=== PATIENT | female | born 1945 | race Caucasian/White ===

== ENCOUNTER 2020-09-27 06:47 | Outpatient (REF) | payer MEDICARE, SELFPAY ==
[2020-09-27 07:21] LABS: MANUAL DIFF FLAG NO
[2020-09-27 07:25] LABS: Basophils Percent Auto 0.8 % (0-2); Eosinophils Absolute Auto 0.1 X10*3/uL (0.0-0.4); Eosinophils Percent Auto 2.6 % (0-4); Hematocrit 44.4 % (37-47); Hemoglobin 14.2 g/dl (12.0-16.0); Imm Gran Abs Auto 0.01 X10*3/uL (0.00-0.03); Imm Gran Pct Auto 0.2 % (0.0-0.4); Lymphocytes Absolute Auto 1.5 X10*3/uL (1.2-4.9); Lymphocytes Percent Auto 29.7 % (20-40); Mean Corpuscular Hemoglobin 29.4 pg (27.0-33.0); Mean Corpuscular Volume 91.9 fL (80-98); Mean Platelet Volume 9.6 fL (9.4-12.3); Monocytes Absolute Auto 0.4 X10*3/uL (0.1-1.2); Monocytes Percent Auto 7.5 % (2-11); Neutrophils Percent Auto 59.2 % (45-73); Platelet Count 270 X10*3/uL (160-400); Red Blood Count 4.83 X10*6/uL (4.20-5.50); White Blood Count 5.1 X10*3/uL (4.8-10.8)
[2020-09-27 07:44] LABS: Alanine Aminotransferase 26 U/L (0-31); Albumin Level 4.2 g/dL (3.5-5.0); Alkaline Phosphatase 93 U/L (39-117); Anion Gap 11 (12-20); Aspartate Amino Transferase 24 U/L (5-31); Bilirubin Total 0.6 mg/dL (0.0-1.0); Blood Urea Nitrogen 21 mg/dL (9-16); Calcium 8.9 mg/dL (8.4-10.2); Carbon Dioxide 31 mmol/L (22-29); Chloride 103 mmol/L (96-108); Cholesterol 188 mg/dL; Estimated Glomerular Filt Rate > 60; Glucose Fasting 88 mg/dL (60-99); HDL Cholesterol 60 mg/dL; LDL Cholesterol Calculated 106 mg/dl; Potassium 4.2 mmol/l (3.3-5.1); Sodium 141 mmol/L (135-145); Total Protein 6.3 g/dL (6.5-8.0); Triglycerides 113 mg/dL
[2020-09-27 08:07] LABS: Thyroid Stimulating Hormone 2.26 uIU/mL (0.32-4.0); Vitamin D 25-OH Total 29.1 ng/mL (>30)
[2020-09-27 08:13] LABS: Folate 19.7 ng/mL (> or = 4.0); Vitamin B12 597 pg/mL (200-900)
[2020-09-27 08:15] LABS: T4 Thyroxine 6.7 ug/dL (4.5-12.0)
== END 2020-09-27 06:48 | disposition home or self-care (01) ==
LOC: HO.LAB 06:47
PROVIDERS: Visit Provider Internal Medicine
DX: Z00.00 Encounter for general adult medical examination without abnormal findings (principal); I10 Essential (primary) hypertension; E78.00 Pure hypercholesterolemia, unspecified
CPT/HCPCS: 36415; 80053; 80061; 82306; 82607; 82746; 84436; 84443; 85025

== ENCOUNTER 2020-09-28 15:15 | Outpatient (REF) | payer MEDICARE, SELFPAY ==
--- NOTE | 2020-09-28 | MM_ITS ---
EXAMINATION: MM SCREENING DIGITAL BREAST TOMOSYNTHESIS, BILATERAL CLINICAL INFORMATION: Screening. Asymptomatic. The lifetime risk of breast cancer based on the Tyrer-Cuzick Model is 2%. COMPARISON: Mammography: 09/25/2019, 09/02/2018, 08/28/2017 TECHNIQUE: Digital breast tomosynthesis is performed in both the craniocaudal and mediolateral oblique views along with computer-aided detection (CAD). Synthesized 2D images are generated from the tomosynthesis. FINDINGS: There are scattered areas of fibroglandular density (ACR BI-RADS breast composition Category b). Breast tissue composition borders on heterogeneously dense in the bilateral anterior breasts. Parenchymal pattern is similar to prior study. No developing density or interval mass or architectural abnormality. Again, there are scattered vascular and benign round coarse calcifications. No significant changes. MM/MM tomosynthesis screening BI IMPRESSION: No significant changes from prior exams. ASSESSMENT: BI-RADS 2: Benign RECOMMENDATION: Routine annual mammography screening. This patient's information was entered into a reminder system with a target due date for their next mammogram.
== END 2020-09-28 15:16 | disposition home or self-care (01) ==
LOC: HO.MAMMO 15:15
PROVIDERS: PCP Internal Medicine; Visit Provider Internal Medicine
DX: Z12.31 Encounter for screening mammogram for malignant neoplasm of breast (principal)
CPT/HCPCS: 77063; 77067

== ENCOUNTER 2020-10-22 10:02 | Outpatient (REF) | payer MEDICARE, SELFPAY ==
[2020-10-22 11:09] LABS: Blood Urea Nitrogen 17 mg/dL (9-16); Estimated Glomerular Filt Rate > 60
== END 2020-10-22 10:03 | disposition home or self-care (01) ==
LOC: HO.LAB 10:02
PROVIDERS: Visit Provider Internal Medicine
DX: R10.32 Left lower quadrant pain (principal); I10 Essential (primary) hypertension; E78.00 Pure hypercholesterolemia, unspecified
CPT/HCPCS: 36415; 82565; 84520

== ENCOUNTER 2020-11-05 08:14 | Outpatient (REF) | payer MEDICARE, SELFPAY ==
--- NOTE | ~2020-11-05 | CT_ITS ---
EXAMINATION: CT ABDOMEN AND PELVIS WITH CONTRAST CLINICAL INFORMATION: Left lower quadrant pain. COMPARISON: CT abdomen and pelvis 02/02/2011 TECHNIQUE: Multidetector volumetric images were obtained from the superior aspect of the liver through the pubic symphysis following administration 85 mL of Omnipaque 350 intravenous contrast. Sagittal and coronal reformatted images were obtained on the technologist's workstation. Oral contrast: No This CT examination was performed using dose optimization techniques as appropriate, variously including the following: *Automated exposure control *Adjustment of mA and/or kV according to patient size (this includes techniques or standardized protocols for targeted exams where dose is matched to indication/reason for exam; i.e. extremities or head) *Use of iterative reconstruction technique DLP: 405 mGy-cm FINDINGS: LUNG BASES: The lung bases are unremarkable. The heart size is normal. There is a small to moderate-sized hiatal hernia. LIVER, GALLBLADDER, AND BILIARY TREE: The liver is normal in size, shape, and attenuation. There are multiple hypodense lesions scattered throughout, most suggestive of small cysts. The largest cyst in the right hepatic lobe measures 1.5 cm and 15 Hounsfield units on axial image 20/3. There is an irregular-shaped hypodense lesion in the left hepatic lobe, lateral segment, hemangioma as was noted on the previous study 02/02/2011. Previously this lesion measured 3.7 cm. No intrahepatic ductal dilatation seen. The gallbladder has been surgically removed PANCREAS: The pancreas is unremarkable. The peripancreatic fat borders are maintained. SPLEEN: Unremarkable. ADRENAL GLANDS: Unremarkable. KIDNEYS AND URETERS: The kidneys are normal in size, shape, and attenuation. No hydronephrosis, hydroureter, or calculi seen. No perinephric stranding. There are several hypodense lesions in the left kidney with the largest lesion measuring 1.2 cm and 18 Hounsfield units. There is a punctate hypodense lesion in the right kidney as well. BLADDER: Unremarkable. GASTROINTESTINAL TRACT: There is scattered stool, diverticuli and gas seen throughout the colon without distention or diverticulitis. The small bowel loops are normal caliber. The appendix is not visualized. ABDOMINAL WALL: No significant hernia is appreciated. LYMPH NODES: Normal. VASCULAR: Unremarkable. PELVIC VISCERA: Unremarkable. OSSEOUS STRUCTURES: No lytic or sclerotic process seen. There is mild degenerative disc changes with vacuum disc phenomena at L5-S1 disc level. Mild bilateral right L4-L5 facet joint arthropathy is noted. CT/CT abdomen pelvis w con IMPRESSION: 1. Moderate constipation and colonic diverticulosis without diverticulitis. 2. Bilateral renal cysts.
[2020-11-05] MEDS: iohexoL 350 MG/ML 100 ML INFUS..BTL 85 ML IV (11:14)
[2020-11-05] MEDS: Barium Sulfate Oral (Berry) 450 ML ORAL.SUSP 900 ML PO (11:14)
== END 2020-11-05 08:15 | disposition home or self-care (01) ==
LOC: HO.CT 08:14
PROVIDERS: PCP Internal Medicine; Visit Provider Internal Medicine
DX: R10.32 Left lower quadrant pain (principal)
CPT/HCPCS: 74177; Q9967

== ENCOUNTER 2021-09-16 06:19 | Outpatient (REF) | payer MEDICARE, SELFPAY ==
[2021-09-16 06:40] LABS: MANUAL DIFF FLAG NO
[2021-09-16 07:13] LABS: Basophils Absolute Auto 0.1 X10*3/uL (0.0-0.2); Eosinophils Absolute Auto 0.2 X10*3/uL (0.0-0.4); Eosinophils Percent Auto 3.1 % (0-4); Hematocrit 42.3 % (37.0-47.0); Hemoglobin 13.7 g/dl (12.0-16.0); Imm Gran Abs Auto 0.02 X10*3/uL (0.00-0.03); Imm Gran Pct Auto 0.4 % (0.0-0.4); Lymphocytes Absolute Auto 1.8 X10*3/uL (1.2-4.9); Lymphocytes Percent Auto 35.8 % (20-40); Mean Corpuscular HGB Conc 32.4 g/dl (31.0-35.0); Mean Corpuscular Hemoglobin 29.8 pg (27.0-33.0); Mean Platelet Volume 9.2 fL (9.4-12.3); Monocytes Absolute Auto 0.4 X10*3/uL (0.1-1.2); Monocytes Percent Auto 7.7 % (2-11); Neutrophils Absolute Auto 2.7 x10*3/uL (2.0-8.3); Platelet Count 311 X10*3/uL (160-400); Red Cell Distribution Width 14.4 % (11.0-16.0); White Blood Count 5.1 X10*3/uL (4.8-10.8)
[2021-09-16 07:22] LABS: Appearance Urine HAZY; Color Urine YELLOW; Glucose Urine UA NEG (NEG); Leukocyte Esterase Urine 3+ (NEG); Nitrite Urine NEG (NEG); Urine Blood NEG (NEG); Urine Ketones NEG (NEG); Urine Protein TRACE MG/DL (NEG-TRACE)
[2021-09-16 07:38] LABS: Alanine Aminotransferase 37 U/L (0-31); Albumin Level 4.1 g/dL (3.5-5.0); Alkaline Phosphatase 104 U/L (39-117); Anion Gap 14 (12-20); Aspartate Amino Transferase 28 U/L (5-31); Bilirubin Total 0.5 mg/dL (0.0-1.0); Blood Urea Nitrogen 22 mg/dL (9-16); Calcium 9.3 mg/dL (8.4-10.2); Carbon Dioxide 27 mmol/L (22-29); Chloride 106 mmol/L (96-108); Cholesterol 196 mg/dL; Estimated Glomerular Filt Rate > 60; Glucose Random 88 mg/dL (60-115); HDL Cholesterol 54 mg/dL; LDL Cholesterol Calculated 118 mg/dl; Potassium 4.6 mmol/L (3.3-5.1); Sodium 142 mmol/L (135-145); Total Protein 6.4 g/dL (6.5-8.0); Triglycerides 123 mg/dL
[2021-09-16 07:49] LABS: Bacteria Urine TRACE /LPF; RBC Urine 0 /HPF (0); Squamous Epithelial Cell Urine 1+ /LPF
[2021-09-16 07:50] LABS: Amorphous Sediment Urine 1+ /LPF; Mucus Urine 1+ /LPF
[2021-09-16 08:03] LABS: Free T4 (Free Thyroxine) 0.93 ng/dL (0.71-1.85); Thyroid Stimulating Hormone 1.65 uIU/mL (0.32-4.0)
[2021-09-16 08:34] LABS: Folate 16.6 ng/mL (> or = 4.0); Vitamin B12 642 pg/mL (200-900)
== END 2021-09-16 06:20 | disposition home or self-care (01) ==
LOC: HO.LAB 06:19
PROVIDERS: PCP Internal Medicine; Visit Provider Internal Medicine
DX: E78.00 Pure hypercholesterolemia, unspecified (principal); I10 Essential (primary) hypertension
CPT/HCPCS: 36415; 80053; 80061; 81001; 82306; 82607; 82746; 84439; 84443; 85025

== ENCOUNTER 2021-10-24 08:42 | Outpatient (REF) | payer MEDICARE, SELFPAY ==
--- NOTE | ~2021-10-24 | MM_ITS ---
EXAMINATION: MM SCREENING DIGITAL BREAST TOMOSYNTHESIS, BILATERAL CLINICAL INFORMATION: Screening. Asymptomatic. The lifetime risk of breast cancer based on the Tyrer-Cuzick Model is 2%. COMPARISON: Mammography: 09/28/2020, 09/25/2019, 09/02/2018 TECHNIQUE: Digital breast tomosynthesis is performed in both the craniocaudal and mediolateral oblique views along with computer-aided detection (CAD). Synthesized 2D images are generated from the tomosynthesis. FINDINGS: There are scattered areas of fibroglandular density (ACR BI-RADS breast composition Category b). Parenchymal pattern is similar to prior studies. Breast tissue composition borders on heterogeneously dense. There is no developing density or interval mass or architectural abnormality. There are scattered benign round and vascular calcifications. The axilla and skin contours are unremarkable. No significant changes. MM/MM tomosynthesis screening BI IMPRESSION: No mammographic evidence of malignancy. ASSESSMENT: BI-RADS 2: Benign RECOMMENDATION: Routine annual mammography screening. This patient's information was entered into a reminder system with a target due date for their next mammogram.
== END 2021-10-24 08:43 | disposition home or self-care (01) ==
LOC: HO.MAMMO 08:42
PROVIDERS: PCP Internal Medicine; Visit Provider Internal Medicine
DX: Z12.31 Encounter for screening mammogram for malignant neoplasm of breast (principal)
CPT/HCPCS: 77063; 77067

== ENCOUNTER 2022-07-03 10:57 | Outpatient (REF) | payer MEDICARE, SELFPAY ==
--- NOTE | ~2022-07-03 | XR_ITS ---
EXAMINATION: XR CHEST CLINICAL INFORMATION: Bronchitis COMPARISON: Previous chest x-ray from 2013 TECHNIQUE: 2 views of the chest were obtained. FINDINGS: The cardiac and mediastinal contours are stable. There is question of a right upper lobe nodule measuring 1.5 cm. This overlies the right anterior third rib and could be related to bone as well. There is subsegmental atelectasis at the left lung base. The lungs are otherwise clear. There is no pleural effusion or pneumothorax. Bony structures are otherwise unremarkable. XR/XR chest 2V IMPRESSION: Question 1.5 cm right upper lobe nodule versus findings related to the right anterior third rib. Follow-up chest x-ray or chest CT scan recommended. Findings will be communicated by the [place] work flow audio/visual operator.
== END 2022-07-03 10:58 | disposition home or self-care (01) ==
LOC: HO.XRAY 10:57
PROVIDERS: PCP Internal Medicine; Visit Provider Internal Medicine
DX: J40 Bronchitis, not specified as acute or chronic (principal)
CPT/HCPCS: 71046

== ENCOUNTER 2022-07-14 08:42 | Outpatient (REF) | payer MEDICARE, SELFPAY ==
--- NOTE | ~2022-07-14 | CT_ITS ---
EXAMINATION: CT CHEST WITH CONTRAST CLINICAL INFORMATION: Right upper lobe 1.5 mm nodule on chest x-ray 07/03/2022. COMPARISON: Chest x-ray 07/03/2022 CT abdomen and pelvis 11/05/2020. TECHNIQUE: Multidetector volumetric CT imaging of the chest was obtained after the administration of 50 mL of Omnipaque 350 intravenous contrast without immediate adverse reactions. Axial MIP volume rendering provided. Sagittal and coronal reformatted images were obtained. This CT examination was performed using dose optimization techniques as appropriate, variously including the following: *Automated exposure control *Adjustment of mA and/or kV according to patient size (this includes techniques or standardized protocols for targeted exams where dose is matched to indication/reason for exam; i.e. extremities or head) *Use of iterative reconstruction technique DLP: 111 mGy-cm. FINDINGS: INSULATION MECHANIC: Well-inflated lungs. LUNGS: The lungs are well inflated with right upper lobe patchy ground-glass opacity adjacent to the major fissure. Measures 3.1 cm on sagittal reconstructed images 84/8. An ill-defined ground-glass attenuation is seen just anteriorly likely continuation of the larger ground-glass density in right upper lobe measuring approximately 7 mm on axial image 19/6. There is a third ill-defined density adjacent to the right minor fissure, approximately 7 mm on axial image 26/4. No focal consolidation, mass or nodule seen in the right upper lower lobe. The left lung on the right lower lobe is clear. MEDIASTINUM: The thyroid lobes are symmetrical and normal. The central trachea and bronchi are widely patent. No abnormal-sized mediastinal or hilar lymph nodes seen. Heart size and the great vessels are normal caliber. A moderate-sized hiatal hernia is seen. CORONARY ARTERY CALCIFICATION: None visualized on this study. PLEURA: There is no pleural effusion. No pleural mass or thickening. AXILLA: No abnormal-sized lymph nodes visualized. UPPER ABDOMEN: There is a 1 cm and a 1.8 cm hypodensity posterior segment right hepatic lobe. Rest of the liver is unremarkable. No intrahepatic ductal dilatation seen. OSSEOUS STRUCTURES: No lytic or sclerotic normal process seen. CT/CT chest w IV con IMPRESSION: 1. Right upper lobe ground-glass density adjacent to the major fissure and right minor fissure. There are 2 additional ill-defined ground-glass attenuations in the right upper lobe. The left lung is clear. These are most likely post inflammatory changes. No solid lesions seen to corroborate findings seen on chest x-ray. 2. No abnormal mediastinal or axillary lymph nodes seen. 3. Moderate-sized hiatal hernia. 4. Two small hypodensities in the right hepatic lobe. These are too small to characterize but likely cysts. Fleischner guidelines were followed.
[2022-07-14] MEDS: iohexoL 350 MG/ML 100 ML INFUS..BTL 65 ML IV (09:42)
[2022-07-14 10:36] LABS: Creatinine POC 0.6 mg/dL (0.5-1.4); GFR POC > 60
== END 2022-07-14 08:43 | disposition home or self-care (01) ==
LOC: HO.CT 08:42
PROVIDERS: PCP Internal Medicine; Visit Provider Internal Medicine
DX: R91.1 Solitary pulmonary nodule (principal)
CPT/HCPCS: 71260; 82565; Q9967

== ENCOUNTER 2022-10-16 06:41 | Outpatient (REF) | payer MEDICARE, SELFPAY ==
--- NOTE | ~2022-10-16 | CT_ITS ---
EXAMINATION: CT CHEST WITHOUT CONTRAST CLINICAL INFORMATION: Solitary pulmonary nodule COMPARISON: 07/14/2022 TECHNIQUE: Multidetector volumetric CT imaging of the chest was done. Axial MIP volume rendering provided. Sagittal and coronal reformatted images were obtained. This CT examination was performed using dose optimization techniques as appropriate, variously including the following: *Automated exposure control *Adjustment of mA and/or kV according to patient size (this includes techniques or standardized protocols for targeted exams where dose is matched to indication/reason for exam; i.e. extremities or head) *Use of iterative reconstruction technique DLP: 99 FINDINGS: LUNGS: When compared to the prior study, there is been interval improvement in right upper and middle lobe ill-defined groundglass opacities. Residual right upper lobe groundglass opacity measures 1.2 cm (7:134). A right middle lobe groundglass opacity decreased from prior study measures 1.5 cm (7:206). New right upper lobe 5 mm nodule (7:164), endobronchial in appearance may reflect mucoid impaction. Additional new sub-3 mm nodules in the right middle lobe, several of which are endobronchial in location, may reflect new foci of mucoid impaction. A reference right middle lobe nodule measuring 3 mm (7:169) is noted. MEDIASTINUM: No mediastinal adenopathy. No significant coronary artery atherosclerotic calcifications. PLEURA: There is no pleural effusion. No pleural mass or thickening. AXILLA: No lymphadenopathy. UPPER ABDOMEN: Large hiatal hernia. OSSEOUS STRUCTURES/SOFT TISSUES: Degenerative changes of the thoracolumbar spine. CT/CT chest wo IV con IMPRESSION: 1. Interval improvement in right upper and middle lobe ill-defined groundglass opacities with residual groundglass opacities measuring up to 1.2 cm. 2. New right upper lobe 5 mm nodule, endobronchial in appearance may reflect mucoid impaction. Additional new sub-3 mm nodules in the right middle lobe, several of which are endobronchial in location, may reflect new foci of mucoid impaction. Fleischner guidelines were followed. According to the UPDATED 2017 Fleischner Society recommendations, the advised followup imaging for a single part solid nodule measuring 6 mm or greater is: CT at 3-6 months to confirm persistence. If unchanged and solid component remains <6 mm, annual CT should be performed for 5 years.
[2022-10-16 06:55] LABS: MANUAL DIFF FLAG NO
[2022-10-16 08:28] LABS: Basophils Percent Auto 0.9 % (0-2); Eosinophils Absolute Auto 0.1 X10*3/uL (0.0-0.4); Eosinophils Percent Auto 3.2 % (0-4); Hematocrit 43.6 % (37.0-47.0); Hemoglobin 14.2 g/dl (12.0-16.0); Imm Gran Abs Auto 0.01 X10*3/uL (0.00-0.03); Imm Gran Pct Auto 0.2 % (0.0-0.4); Lymphocytes Absolute Auto 1.2 X10*3/uL (1.2-4.9); Lymphocytes Percent Auto 26.6 % (20-40); Mean Corpuscular HGB Conc 32.6 g/dl (31.0-35.0); Mean Corpuscular Hemoglobin 29.6 pg (27.0-33.0); Mean Platelet Volume 9.9 fL (9.4-12.3); Monocytes Absolute Auto 0.4 X10*3/uL (0.1-1.2); Monocytes Percent Auto 8.6 % (2-11); Neutrophils Absolute Auto 2.7 x10*3/uL (2.0-8.3); Neutrophils Percent Auto 60.5 % (45-73); Platelet Count 282 X10*3/uL (160-400); Red Blood Count 4.79 X10*6/uL (4.20-5.50); Red Cell Distribution Width 14.3 % (11.0-16.0); White Blood Count 4.4 X10*3/uL (4.8-10.8)
[2022-10-16 08:51] LABS: Alanine Aminotransferase 23 U/L (0-31); Albumin Level 4.2 g/dL (3.5-5.0); Alkaline Phosphatase 95 U/L (39-117); Anion Gap 12 (12-20); Aspartate Amino Transferase 24 U/L (5-31); Bilirubin Total 0.5 mg/dL (0.0-1.0); Blood Urea Nitrogen 29 mg/dL (9-16); Calcium 9.2 mg/dL (8.4-10.2); Carbon Dioxide 29 mmol/L (22-29); Chloride 105 mmol/L (96-108); Cholesterol 193 mg/dL; Estimated Glomerular Filt Rate > 60; Glucose Random 79 mg/dL (60-115); HDL Cholesterol 59 mg/dL; LDL Cholesterol Calculated 115 mg/dl; Potassium 4.1 mmol/L (3.3-5.1); Sodium 142 mmol/L (135-145); Total Protein 6.3 g/dL (6.5-8.0); Triglycerides 99 mg/dL
[2022-10-16 09:10] LABS: Vitamin D 25-OH Total 36.3 ng/mL (>30)
[2022-10-16 09:11] LABS: Folate 16.2 ng/mL (> or = 4.0); Vitamin B12 587 pg/mL (200-900)
== END 2022-10-16 06:42 | disposition home or self-care (01) ==
LOC: HO.CT 06:41
PROVIDERS: PCP Internal Medicine; Visit Provider Internal Medicine
DX: R91.1 Solitary pulmonary nodule (principal); I10 Essential (primary) hypertension; E78.00 Pure hypercholesterolemia, unspecified; M85.80 Other specified disorders of bone density and structure, unspecified site
CPT/HCPCS: 36415; 71250; 80053; 80061; 82306; 82607; 82746; 84439; 84443; 85025

== ENCOUNTER 2022-10-30 09:18 | Outpatient (REF) | payer MEDICARE, SELFPAY ==
--- NOTE | ~2022-10-30 | MM_ITS ---
EXAMINATION: MM SCREENING DIGITAL BREAST TOMOSYNTHESIS, BILATERAL CLINICAL INFORMATION: Screening. Asymptomatic. The lifetime risk of breast cancer based on the Tyrer-Cuzick Model is 2%. COMPARISON: Mammography: 10/24/2021, 09/28/2020, 09/25/2019, 09/02/2018 TECHNIQUE: Digital breast tomosynthesis is performed in both the craniocaudal and mediolateral oblique views along with computer-aided detection (CAD). Synthesized 2D images are generated from the tomosynthesis. FINDINGS: There are scattered areas of fibroglandular density (ACR BI-RADS breast composition Category b). Breast tissue composition borders on heterogeneously dense in the anterior breasts. The parenchymal pattern is similar to prior studies. There is no developing density or interval mass or architectural abnormality. Again, there are scattered bilateral benign round and rim and vascular calcifications. Benign rim calcifications are present central left breast 3.5 cm from nipple. There are no significant changes. MM/MM tomosynthesis screening BI IMPRESSION: No mammographic evidence of malignancy. ASSESSMENT: BI-RADS 2: Benign RECOMMENDATION: Routine annual mammography screening. This patient's information was entered into a reminder system with a target due date for their next mammogram.
== END 2022-10-30 09:19 | disposition home or self-care (01) ==
LOC: HO.MAMMO 09:18
PROVIDERS: PCP Internal Medicine; Visit Provider Internal Medicine
DX: Z12.31 Encounter for screening mammogram for malignant neoplasm of breast (principal)
CPT/HCPCS: 77063; 77067

== ENCOUNTER 2023-02-20 08:45 | Outpatient (REF) | payer MEDICARE, SELFPAY ==
--- NOTE | ~2023-02-20 | XR_ITS ---
EXAMINATION: XR CHEST CLINICAL INFORMATION: Bronchitis COMPARISON: Previous chest CT most recent October 2022 and chest x-ray most recent July 2022 TECHNIQUE: 2 views of the chest were obtained. FINDINGS: The cardiac and mediastinal contours are stable. The lungs are well inflated. The lungs are clear. No pleural effusion or pneumothorax. Degenerative changes of the spine. XR/XR chest 2V IMPRESSION: No evidence for acute disease in the chest.
== END 2023-02-20 08:46 | disposition home or self-care (01) ==
LOC: HO.HMGCX 08:45
PROVIDERS: Visit Provider Internal Medicine
DX: J40 Bronchitis, not specified as acute or chronic (principal)
CPT/HCPCS: 71046

== ENCOUNTER 2023-03-28 10:22 | Outpatient (REF) | payer MEDICARE, SELFPAY ==
--- NOTE | ~2023-03-28 | CT_ITS ---
EXAMINATION: CT CHEST WITHOUT CONTRAST HIGH RESOLUTION CLINICAL INFORMATION: Solitary pulmonary nodule. COMPARISON: Chest x-ray 02/20/[address] 10/16/2022. TECHNIQUE: Multidetector volumetric imaging was performed from the thoracic inlet through the lung bases without contrast. Sagittal and coronal reformatted images were obtained on the technologist workstation. Soft tissue and lung algorithms evaluated. Thick slab MIP images were performed to increase nodule conspicuity. This CT examination was performed using dose optimization techniques as appropriate, variously including the following: *Automated exposure control *Adjustment of mA and/or kV according to patient size (this includes techniques or standardized protocols for targeted exams where dose is matched to indication/reason for exam; i.e. extremities or head) *Use of iterative reconstruction technique DLP: 115 mGy-cm. FINDINGS: Central airways are patent although some peripheral mucous plugging is again appreciated.. Lungs are well aerated. Mild emphysematous changes are present. There is minimal biapical architectural distortion/scarring. There is some minimal dependent atelectasis. No lobar consolidation, pleural effusion or pneumothorax. Previously visualized approximately 1.5 cm right middle lobe groundglass opacity is stable. A few previously visualized subcentimeter pulmonary nodules are stable in size. No new suspicious pulmonary nodules visualized. The heart is normal in size. There is no pericardial effusion. No coronary artery calcifications. Normal caliber thoracic aorta. No gross mediastinal or hilar lymphadenopathy appreciated on today's noncontrast imaging. No pathologically enlarged axillary lymph nodes. Visualized portion of the upper abdomen demonstrate a moderate sized hiatal hernia. There are a few small hepatic hypodense foci, some of which demonstrate cystic characteristics but others are inaccurately characterized. Mild degenerative changes of the spine. CT/CT chest wo con - High Res IMPRESSION: Previously visualized 1.5 cm right middle lobe groundglass opacity is stable. A few other previously visualized subcentimeter pulmonary nodules are stable in size. No new suspicious pulmonary nodules visualized.
== END 2023-03-28 10:23 | disposition home or self-care (01) ==
LOC: HO.CT 10:22
PROVIDERS: PCP Internal Medicine; Visit Provider Internal Medicine
DX: R91.1 Solitary pulmonary nodule (principal)
CPT/HCPCS: 71250

== ENCOUNTER 2023-06-06 07:36 | Outpatient (REF) | payer MEDICARE, SELFPAY ==
--- NOTE | 2023-06-06 07:48 | ECG_ITS ---
Test Reason : htn Blood Pressure : / mmHG Vent. Rate : 074 BPM Atrial Rate : 074 BPM P-R Int : 142 ms QRS Dur : 132 ms QT Int : 392 ms P-R-T Axes : 041 029 019 degrees QTc Int : 435 ms Normal sinus rhythm Right bundle branch block Abnormal ECG When compared with ECG of 02-APR-2011 04:05, No significant change was found Referred By: Agnieszka Mora Electronically Signed By:CAROLYN YOUNGBLOOD
[2023-06-06 07:49] LABS: MANUAL DIFF FLAG NO
[2023-06-06 08:02] LABS: Basophils Percent Auto 0.6 % (0-2); Eosinophils Absolute Auto 0.1 X10*3/uL (0.0-0.4); Eosinophils Percent Auto 2.2 % (0-4); Hematocrit 42.9 % (37.0-47.0); Hemoglobin 14.1 g/dl (12.0-16.0); Imm Gran Abs Auto 0.02 X10*3/uL (0.00-0.03); Imm Gran Pct Auto 0.4 % (0.0-0.4); Lymphocytes Absolute Auto 1.3 X10*3/uL (1.2-4.9); Lymphocytes Percent Auto 24.8 % (20-40); Mean Corpuscular HGB Conc 32.9 g/dl (31.0-35.0); Mean Corpuscular Hemoglobin 30.2 pg (27.0-33.0); Mean Corpuscular Volume 91.9 fL (80.0-98.0); Mean Platelet Volume 9.6 fL (9.4-12.3); Monocytes Absolute Auto 0.4 X10*3/uL (0.1-1.2); Monocytes Percent Auto 8.7 % (2-11); Neutrophils Absolute Auto 3.2 x10*3/uL (2.0-8.3); Neutrophils Percent Auto 63.3 % (45-73); Platelet Count 262 X10*3/uL (160-400); Red Blood Count 4.67 X10*6/uL (4.20-5.50)
[2023-06-06 08:40] LABS: Alanine Aminotransferase 43 U/L (0-31); Albumin Level 4.2 g/dL (3.5-5.0); Alkaline Phosphatase 104 U/L (39-117); Anion Gap 14 (12-20); Aspartate Amino Transferase 32 U/L (5-31); Bilirubin Total 0.5 mg/dL (0.0-1.0); Blood Urea Nitrogen 25 mg/dL (9-16); Calcium 9.5 mg/dL (8.4-10.2); Carbon Dioxide 27 mmol/L (22-29); Chloride 105 mmol/L (96-108); Cholesterol 181 mg/dL (<200); Estimated Glomerular Filt Rate > 60; Glucose Random 93 mg/dL (60-115); HDL Cholesterol 64 mg/dL (>40); LDL Cholesterol Calculated 101 mg/dL (<100); Potassium 4.1 mmol/L (3.3-5.1); Sodium 142 mmol/L (135-145); Total Protein 6.9 g/dL (6.5-8.0); Triglycerides 81 mg/dL (<150)
[2023-06-06 08:59] LABS: Free T4 (Free Thyroxine) 0.88 ng/dL (0.71-1.85); Thyroid Stimulating Hormone 2.17 uIU/mL (0.32-4.0)
[2023-06-06 09:04] LABS: Folate 14.8 ng/mL (> or = 4.0); Vitamin B12 716 pg/mL (200-900)
== END 2023-06-06 07:37 | disposition home or self-care (01) ==
LOC: HO.LAB 07:36
PROVIDERS: PCP Internal Medicine; Visit Provider Internal Medicine
DX: I10 Essential (primary) hypertension (principal); E78.00 Pure hypercholesterolemia, unspecified; E55.9 Vitamin D deficiency, unspecified
CPT/HCPCS: 36415; 80053; 80061; 82306; 82607; 82746; 84439; 84443; 85025; 93005

== ENCOUNTER 2023-06-13 08:13 | Outpatient (REF) | payer MEDICARE, SELFPAY ==
--- NOTE | ~2023-06-13 | US_ITS ---
EXAMINATION: US ABDOMEN COMPLETE CLINICAL INFORMATION: Other specified abnormal findings of blood chemistry. Elevated LFTs. COMPARISON: CT abdomen and pelvis 11/05/2020 and 06/15/2008; abdominal ultrasound dated 06/09/2008. TECHNIQUE: Real-time imaging of the abdominal viscera. FINDINGS: PANCREAS: Normal. ABDOMINAL AORTA: The proximal, mid, and distal segments are normal in caliber. INFERIOR VENA CAVA: Visualized portions are normal. LIVER: The liver is normal in size. The liver contour is normal. Parenchymal echogenicity is slightly coarse. Within the left hepatic lobe laterally, a 1.8 x 2.5 x 2.3 cm hyperechoic, circumscribed mass is seen, with central hypoechoic focus, possibly a central scar. On the ultrasound examination of 06/20/2018, this measured 1.6 x 2.6 x 3.0 cm. It showed enhancement features consistent with a benign hemangioma on the CT examination (hemangioma protocol) of 06/15/2008. Centrally within the right hepatic lobe, a 1.7 cm in maximal diameter benign, simple cyst is demonstrated, for which no imaging follow-up is recommended. There is no intrahepatic biliary duct dilatation seen. GALLBLADDER: Surgically absent. COMMON BILE DUCT: Normal in caliber measuring 0.6 cm in diameter. RIGHT KIDNEY: There is a hypertrophic column of [place]. No hydronephrosis. No renal calculi or focal parenchymal lesions. The kidney measures 10.6 cm in maximum dimension. LEFT KIDNEY: Normal. No hydronephrosis. No renal calculi or focal parenchymal lesions. The kidney measures 11.2 cm in maximum dimension. SPLEEN: Normal. The spleen measures 10.0 cm in maximum dimension. FREE FLUID: None. US/US abdomen complete IMPRESSION: 1. There is generalized increase in hepatic echotexture, consistent with fatty infiltration or hepatocellular disease. Please correlate clinically. No new focal hepatic mass or intrahepatic biliary dilatation is seen. 2. There is mild interim decrease in a previously demonstrated benign hepatic hemangioma is situated within the left hepatic lobe laterally. 2. A benign, stable hemangioma is redemonstrated within the left hepatic lobe laterally.
== END 2023-06-13 08:14 | disposition home or self-care (01) ==
LOC: HO.HMGCX 08:13
PROVIDERS: PCP Internal Medicine; Visit Provider Internal Medicine
DX: R79.89 Other specified abnormal findings of blood chemistry (principal)
CPT/HCPCS: 76700

== ENCOUNTER 2023-06-15 08:48 | Outpatient (AMB) | payer MEDICARE, SELFPAY ==
--- NOTE | 2023-06-15 09:00 | A.OFFPC_ITS ---
Vital Signs 06/15/23 09:01 Height 4 ft 11.45 in Weight 141 lb 6 oz BMI 28.1 BP 150/86 H Blood Pressure Location Lt brachial Position Sitting Respiration 16 Pulse 80 Pulse Source Pulse Oximeter Pulse Oximetry (%) 97 Oxygen Delivery Method Room Air Intake Visit Reasons: 06/25-L foot toe pinned/straightened Intake Note: Patient is here for a Pre-op for Left foot marley osteotomy, left second hammertoe phalangeal interphalageal fusion scheduled with Dr. Adrian Kirby on 06/25/23. Spice Grinder Required: No Accompanied by: Self / Same As Patient Allergies codeine [CODEINE] Allergy (Severe, Verified 06/15/23 09:08) BRONCHOSPASMS oxycodone [OXYCODONE] Allergy (Severe, Verified 06/15/23 09:08) BRONCHOSPASMS lisinopril Adverse Reaction (Intermediate, Verified 06/15/23 09:08) Headache Medication List - Last Reconciled 06/15/23 by Agnieszka Mora MD ascorbic acid (vitamin C) 1 g PO DAILY aspirin (Adult Aspirin Regimen) 81 mg PO DAILY cetirizine 10 mg PO DAILY PRN 30 days docusate sodium (Colace) 100 mg PO BID hydrochlorothiazide 25 mg PO DAILY 90 days lactobacillus combination no.8 (Adult Probiotic) 3,000 mmu cells PO DAILY meloxicam 15 mg PO DAILY multivitamin 1 tab PO DAILY omega-3 fatty acids 500 mg PO DAILY psyllium husk (Metamucil) 1 tbsp PO BID simvastatin 10 mg PO BEDTIME Tobacco use date assessed: 10/31/22 Fall risk assessment: No Falls in past year Last assessed Fall Risk: 06/15/23 Dental Screening Dental Screen Date: 06/15/23 Did you have a dental visit in the last 12 months?: Yes Did you have a dental problem in the last 6 months where you did not have access to dental care?: No Was dental information given to patient?: Patient has dentist HPI 06/25-L foot toe pinned/straightened HPI Details 78-year-old female with a history of hyp ertension and hypercholesterolemia last seen in December 2022 concern about having pulmonary nodule and a CT scan repeat done March 2023:Previously visualized 1.5 cm right middle lobe groundglass opacity is stable. A few other previously visualized subcentimeter pulmonary nodules are stable in size. No new suspicious pulmonary nodules visualized. . Patient also has an upcoming orthoped ic surgery [facility] left foot osteotomy, left 2nd hammertoe phalangeal interphalangeal fusion scheduled 06/25/2023 blood work done showing mild elevation in liver function test. Ultrasound done showing fatty liver. EKG June 2023 normal sinus rhythm Right bundle branch block Abnormal ECG When compared with ECG of 02-APR-2011 04:05, No significant change was found [facility] Medical History (Updated 06/15/23 @ 09:26 by Agnieszka Mora MD) LFT elevation Sinusitis Bronchitis Alopecia Diverticular disease Hypercholesterolemia Hypertension Surgical History History of surgery H/O basal cell carcinoma excision History of foot surgery History of thumb surgery History of appendectomy History of tonsillectomy History of total abdominal hysterectomy and bilateral salpingo-oophorectomy History of cholecystectomy Family History Father Lung cancer Mother Hypertension Stroke Paternal Aunt Breast cancer Brother Prostate cancer Social History (Updated 06/15/23 @ 09:39 by Agnieszka Mora MD) Housing: House Alcohol intake: current Patient Tobacco Use Status: Former Tobacco user Tobacco use type: Cigarette Years Smoked: quit 1961 2months of smoking only e-Cigarette/Vaping Use: Never Used Second Hand Smoke Exposure: No service: No Current occupational status: retired Cognitive needs: No Hearing needs: No Vision needs: Yes Questionnaire Thrive Questionnaire Date Thrive assessed: 10/31/22 CARLOS-7 AMB Questionnaire CARLOS-7 Date CARLOS - 7 assessed: 10/31/22 Source: Developed by Drs. Venkata Boo, Donna Shaw, Maulik Martinez and colleagues, with an educational tico from [employer]. Review of Systems Const Denies poor appetite and Denies weakness Eyes Denies no additional complaints ENT Reports Normal hearing present, Denies dizziness, Denies nasal congestion, Denies tinnitus and Denies sore throat Card Denies chest pain, Denies syncope, Denies rapid heart rate and Denies dyspnea Resp Denies cough and Denies dyspnea GI Denies change in stool character, Reports constipation, Denies diarrhea, Denies nausea and Denies vomiting Denies urinary frequency, Denies difficulty voiding and Denies dysuria Neuro Reports Normal hearing present, Denies confusion, Denies dizziness, Denies synco pe and Denies weakness Psych Denies confusion Physical exam (Primary Care) Vital Signs: Last Vital Signs Pulse 80 06/15/23 09:01 Resp 16 06/15/23 09:01 BP 150/86 H 06/15/23 09:01 Pulse Ox 97 06/15/23 09:01 Oxygen Delivery Method Room Air 06/15/23 09:01 BMI result Body Mass Index 28.1 Tobacco/Smoking Status: Tobacco use Status Tobacco use date assessed 10/31/22 06/15/23 09:04 Patient Tobacco Use Status Former Tobacco user 06/15/23 09:04 Tobacco use type Cigarette 06/15/23 09:04 e-Cigarette/Vaping Use Never Used 06/15/23 09:04 Thrive Assessment: Date of Thrive Assessment Date Thrive assessed 10/31/22 06/15/23 09:04 Const General: alert; No acute distress or confusion Orientation/consciousness: No confusion Eyes Conjunctivae: conjunctivae normal Resp Auscultation: clear to auscultation bilaterally Cardio Rate: regular rate Rhythm: regular rhythm GI Inspection: Yes normal to inspection Neuro General: No confusion Cranial nerves: Yes Normal hearing present Extrem General: Yes normal to inspection and No edema Assessment and Plan Assessment & Plan (1) Preop exam for internal medicine: Code(s): Z01.818 - Encounter for other preprocedural examination Plan: EKG and blood work received and evaluated. No further workup needed at this point and may proceed with the contemplated procedure. With the age patient is at intermediate risk. Patient is advised to hold off any anti-inflammatory like meloxicam and aspirin 1 week before the procedure. Thank you very much for letting me participate in the care of this patient. (2) Hammertoe of left foot: Code(s): M20.42 - Other hammer toe(s) (acquired), left foot Plan: Scheduled for surgery 06/25/2020 [facility] (3) Hypertension: Code(s): I10 - Essential (primary) hypertension Qualifiers: Hypertension type: essential hypertension Qualified Code(s): I10 - Essential (primary) hypertension Plan: Blood pressure patient is on hydrochlorothiazide 25 mg once a day. Continue with blood pressure medication. Decrease salt intake and exercise (4) Hypercholesterolemia: Code(s): E78.00 - Pure hypercholesterolemia, unspecified Plan: Avoid fried foods, chicken skin, eggs, butter margarine, pastries and meat. Be it pork or beef they have a lot of cholesterol LDL goal of less than 130 and triglyceride of less than 150 patient is taking simvastatin 10 mg bedtime (5) Pulmonary nodule: Comment: 07/2022 Right upper lobe ground-glass density adjacent to the major fissure and right minor fissure. There are 2 additional ill-defined ground-glass attenuations in the right upper lobe. The left lung is clear. These are most likely post inflammatory changes. No solid lesions seen to corroborate findings seen on chest x-ray. 2. No abnormal mediastinal or axillary lymph nodes seen. 3. Moderate-sized hiatal hernia. 4. Two small hypodensities in the right hepatic lobe. These are too small to characterize but likely cysts. October 2022 New right upper lobe 5 mm nodule, endobronchial in appearance may reflect mucoid impaction. Additional new sub-3 mm nodules in the right middle lobe, several of which are endobronchial in location, may reflect new foci of mucoid impaction. Fleischner guidelines were followed. According to the UPDATED 2017 Fleischner Society recommendations, the advised followup imaging for a single part solid nodule measuring 6 mm or greater is: CT at 3-6 months to confirm persistence. If unchanged and solid component remains <6 mm, annual CT should be performed for 5 years. March 2023 stable Code(s): R91.1 - Solitary pulmonary nodule Plan: Stable March [address]23 CT scan (6) Fatty liver: Code(s): K76.0 - Fatty (change of) liver, not elsewhere classified Plan: Low-fat diet and exercise Coding Level of Care Code Est Pt Level 4 (34372) Diagnoses Preop exam for internal medicine Z01.818 Hammertoe of left foot M20.42 Essential hypertension I10 Hypertension type: essential hypertension Hypercholesterolemia E78.00 Pulmonary nodule R91.1 Fatty liver K76.0
[2023-06-15 09:01] VITALS: BP 150/86; PULSE 80; RESP 16; O2SAT 97; BMI 28.1
== END 2023-06-15 09:48 | disposition home or self-care (01) ==
PROVIDERS: PCP Internal Medicine; Visit Provider Internal Medicine
DX: Z01.818 Encounter for other preprocedural examination (principal); M20.42 Other hammer toe(s) (acquired), left foot; I10 Essential (primary) hypertension; E78.00 Pure hypercholesterolemia, unspecified; R91.1 Solitary pulmonary nodule; K76.0 Fatty (change of) liver, not elsewhere classified
CPT/HCPCS: 99214

== ENCOUNTER 2023-09-10 13:49 | Outpatient (REF) | payer MEDICARE, SELFPAY ==
--- NOTE | ~2023-09-10 | XR_ITS ---
EXAMINATION: XR KNEE, RIGHT CLINICAL INFORMATION: Pain in right knee COMPARISON: None available. TECHNIQUE: 3 views of the right knee. FINDINGS: No fracture or joint effusion. Alignment is anatomic. There is minimal narrowing of the medial joint compartment with small marginal osteophytes. No abnormal soft tissue calcification. XR/XR knee RT 2V IMPRESSION: Minimal osteoarthritis.
[2023-09-10 15:03] LABS: Alanine Aminotransferase 20 U/L (0-31); Albumin Level 4.3 g/dL (3.5-5.0); Alkaline Phosphatase 100 U/L (39-117); Anion Gap 13 (12-20); Aspartate Amino Transferase 21 U/L (5-31); Bilirubin Total 0.4 mg/dL (0.0-1.0); Blood Urea Nitrogen 21 mg/dL (9-16); Calcium 9.5 mg/dL (8.4-10.2); Carbon Dioxide 29 mmol/L (22-29); Chloride 103 mmol/L (96-108); Estimated Glomerular Filt Rate > 60; Glucose Random 111 mg/dL (60-115); Potassium 3.8 mmol/L (3.3-5.1); Sodium 141 mmol/L (135-145); Total Protein 6.9 g/dL (6.5-8.0)
[2023-09-11 08:02] LABS: HBc Num1 0.08 S/CO (0.00-0.79); HBsAGNum1 0.28 S/CO (0.00-0.99); Hepatitis B Core Antibody Nonreactive (Nonreactive); Hepatitis B Surface Antigen Negative (Negative); ~HepC Num1 0.06 S/CO (0.00-0.79); ~Hepatitis B Surface Antibody REACTIVE (Nonreactive); ~Hepatitis C Antibody Nonreactive (Nonreactive)
== END 2023-09-10 13:50 | disposition home or self-care (01) ==
LOC: HO.XRAY 13:49
PROVIDERS: PCP Internal Medicine; Visit Provider Internal Medicine
DX: R79.89 Other specified abnormal findings of blood chemistry (principal); M25.561 Pain in right knee; R91.1 Solitary pulmonary nodule
CPT/HCPCS: 36415; 73560; 80053; 86704; 86706; 86803; 87340

== ENCOUNTER 2023-11-06 09:01 | Outpatient (REF) | payer MEDICARE, SELFPAY ==
--- NOTE | ~2023-11-06 | MM_ITS ---
EXAMINATION: MM SCREENING DIGITAL BREAST TOMOSYNTHESIS, BILATERAL CLINICAL INFORMATION: Screening. Asymptomatic. COMPARISON: Mammography: This study is compared with prior exams dating back to 2018. TECHNIQUE: Digital breast tomosynthesis is performed in both the craniocaudal and mediolateral oblique views along with computer-aided detection (CAD). Synthesized 2D images are generated from the tomosynthesis. FINDINGS: The breasts are heterogeneously dense, which may obscure small masses (ACR BI-RADS breast composition Category c). Both nipples appear flattened. There is a focal asymmetry in the subareolar region of the left breast. There is also focal asymmetric increased parenchymal density in the immediate subareolar region of the right breast. Bilateral additional mammographic imaging and targeted sonography of the nipple areolar complexes and subareolar regions are advised. There are no abnormal calcifications in either breast. There are a few, unchanged, benign calcifications in each breast. Few, benign bilateral benign calcifications are present. MM/MM tomosynthesis screening BI IMPRESSION: Bilateral subareolar findings which warrant additional mammographic and targeted sonographic imaging. ASSESSMENT: BI-RADS BI-RADS 0 - Incomplete: Needs additional Imaging. RECOMMENDATION: 1. Additional views of both breasts 2. Targeted ultrasound 3. Radiology department staff will contact the patient for additional imaging. Additional Imaging required This examination should not preclude the clinical evaluation of a suspicious palpable abnormality. This patient's information was entered into a reminder system with a target due date for their next mammogram.
== END 2023-11-06 09:02 | disposition home or self-care (01) ==
LOC: HO.MAMMO 09:01
PROVIDERS: PCP Internal Medicine; Visit Provider Internal Medicine
DX: Z12.31 Encounter for screening mammogram for malignant neoplasm of breast (principal)
CPT/HCPCS: 77063; 77067

== ENCOUNTER → 2023-11-06 09:15 | Outpatient (BNV) | payer MEDICARE, SELFPAY | PROVIDERS: PCP Internal Medicine; Visit Provider Radiology Diagnostic Radiology | DX: Z12.31 Encounter for screening mammogram for malignant neoplasm of breast (principal) | CPT/HCPCS: 77063; 77067 ==

== ENCOUNTER 2023-11-13 12:49 | Outpatient (AMB) | payer MEDICARE, SELFPAY ==
[2023-11-13 12:56] VITALS: BP 136/82; PULSE 68; O2SAT 98; BMI 28.8
--- NOTE | 2023-11-13 12:56 | MHC.PC.OV ---
Vital Signs 11/13/23 12:56 Height 4 ft 11.45 in Weight 145 lb 0.4 oz BMI 28.8 BP 136/82 Blood Pressure Location Lt brachial Position Sitting Pulse 68 Pulse Source Pulse Oximeter Pulse Oximetry (%) 98 Oxygen Delivery Method Room Air Intake Visit Reasons: PE Intake Note: Patient is here today for a physical. Mail Processing Associate Required: No Allergies codeine [CODEINE] Allergy (Severe, Verified 11/13/23 12:56) BRONCHOSPASMS oxycodone [OXYCODONE] Allergy (Severe, Verified 11/13/23 12:56) BRONCHOSPASMS lisinopril Adverse Reaction (Intermediate, Verified 11/13/23 12:56) Headache Medication List - Last Reconciled 11/13/23 by Agnieszka Mora MD ascorbic acid (vitamin C) 1 g PO DAILY aspirin (Adult Aspirin Regimen) 81 mg PO DAILY cetirizine 10 mg PO DAILY PRN 30 days docusate sodium (Colace) 100 mg PO BID hydrochlorothiazide 25 mg PO DAILY 90 days lactobacillus combination no.8 (Adult Probiotic) 3,000 mmu cells PO DAILY meloxicam 15 mg PO DAILY multivitamin 1 tab PO DAILY omega-3 fatty acids 500 mg PO DAILY psyllium husk (Metamucil) 1 tbsp PO BID simvastatin 10 mg PO BEDTIME Tobacco use date assessed: 11/13/23 Fall risk assessment: No Falls in past year Last assessed Fall Risk: 11/13/23 Dental Screening Dental Screen Date: 11/13/23 Did you have a dental visit in the last 12 months?: Yes Did you have a dental problem in the last 6 months where you did not have access to dental care?: No Was dental information given to patient?: Patient has dentist HPI PE HPI Details 78-year-old female with hypertension hypercholesterolemia pulmonary nodule last CT scan March 2023 and fatty liver coming in for physical exam last seen in June 2023 for preoperative evaluation for hammertoe on the left foot. Patient had mammogram done October 2022 colonoscopy 2013 and bone density October 2018. Noted x-ray of the right knee showing osteoarthritis. lightheaded ness and anxious. ? near syncope. chest pain /pressure radiating to th L shoulder after just getting out of bed, no sob PFSH Medical History (Updated 11/13/23 @ 13:22 by Agnieszka Mora MD) LFT elevation Sinusitis Bronchitis Alopecia Diverticular disease Hypercholesterolemia Hypertension Surgical History History of surgery H/O basal cell carcinoma excision History of foot surgery History of thumb surgery History of appendectomy History of tonsillectomy History of total abdominal hysterectomy and bilateral salpingo-oophorectomy History of cholecystectomy Family History Father Lung cancer Mother Hypertension Stroke Paternal Aunt Breast cancer Brother Prostate cancer Social History (Updated 11/13/23 @ 13:09 by Agnieszka Mora MD) Housing: House Alcohol intake: current Comment: once a week 4 oz wine Patient Tobacco Use Status: Former Tobacco user Tobacco use type: Cigarette Years Smoked: quit 1961 2months of smoking only e-Cigarette/Vaping Use: Never Used Second Hand Smoke Exposure: No service: No Current occupational status: retired Cognitive needs: No Hearing needs: No Vision needs: Yes Questionnaire Thrive Questionnaire Date Thrive assessed: 11/13/23 I am a: Patient What is your living situation today?: I have a steady place to live Within the past 12 months, did the food you bought not last and you didn't have the money to get more?: Never true Within the past 12 months, did you worry whether your food would run out before you got money to buy more?: Never true Do you have trouble paying for medicines?: No Do you have trouble getting transportation to medical appointments?: No Do you have trouble paying your heating and electricity bill?: No Do you have trouble taking care of your child, family member or friend?: No Do you have trouble with day-to-day activities such as bathing, preparing meals, shopping, managing finances, etc.?: No Are you currently unemployed and looking for a job?: No Are you interested in more education?: No Please select the resources that you would like help with: None THRIVE Score: 0 AUDIT C Alcohol Use Questionnaire (AUDIT-C) 1. How often do you have a drink containing alcohol?: Monthly or less 2. How many drinks containing alcohol do you have on a typical day when you are drinking?: 1 or 2 3. How often do you have six or more drinks on one occasion?: Never Total Score: 1 CARLOS-7 AMB Questionnaire CARLOS-7 Date CARLOS - 7 assessed: 11/13/23 Source: Developed by Drs. Venkata Boo, Donna Shaw, Maulik Mratinez and colleagues, with an educational tico from [employer]. Review of Systems Const Denies poor appetite and Denies weakness Eyes Denies no additional complaints ENT Reports Normal hearing present, Denies dizziness, Denies nasal congestion, Denies tinnitus and Denies sore throat Card Denies chest pain, Denies syncope, Denies rapid heart rate and Denies dyspnea Resp Denies cough and Denies dyspnea GI Denies change in stool character, Reports constipation, Denies diarrhea, Denies nausea and Denies vomiting Denies urinary frequency, Denies difficulty voiding and Denies dysuria Neuro Reports Normal hearing present, Denies confusion, Denies dizziness, Denies syncope and Denies weakness Psych Denies confusion Physical exam (Primary Care) Vital Signs: Last Vital Signs Pulse 68 11/13/23 12:56 BP 136/82 11/13/23 12:56 Pulse Ox 98 11/13/23 12:56 Oxygen Delivery Method Room Air 11/13/23 12:56 BMI result Body Mass Index 28.8 Tobacco/Smoking Status: Tobacco use Status Tobacco use date assessed 11/13/23 11/13/23 12:59 Patient Tobacco Use Status Former Tobacco user 11/13/23 13:09 Tobacco use type Cigarette 11/13/23 13:09 e-Cigarette/Vaping Use Never Used 11/13/23 13:09 Thrive Assessment: Date of Thrive Assessment Date Thrive assessed 11/13/23 11/13/23 12:59 Const General: No confusion Orientation/consciousness: No confusion HENMT Head: Yes normocephalic Ears: external ears normal and TM's normal bilaterally Face and sinus: Yes normal facial exam Mouth: moist mucous membranes Throat: Yes tonsils normal Eyes Conjunctivae: conjunctivae normal Pupils: Equal, round and reactive pupils present and Pupil accommodation reflex normal Direct Ophthalmoscopy: normal light reflex Neck Neck: No lymphadenopathy Thyroid: Thyroid normal Chest Chest palpation & inspection: normal inspection of the chest Resp Effort & Inspection: normal respiratory effort and no audible wheezes Auscultation: clear to auscultation bilaterally, no crackles, no wheezes and lung sounds not diminished Cardio Rate: regular rate Rhythm: regular rhythm Peripheral pulses: radial pulses present and dorsalis pedis present GI Palpation (GI): no masses Auscultation: normal bowel sounds and normoactive bowel sounds Rectal Exam - Female: deferred Skin General skin exam: no rashes or lesions noted Rashes: no rashes Neuro General: No confusion Cranial nerves: Yes Equal, round and reactive pupils present and Yes Normal hearing present Cognition (Neuro): normal cognition Gait exam (Neuro): Normal gait present Motor exam (neuro): 5/5 motor strength present throughout Deep tendon reflexes (DTR's): Right brachioradialis reflex intensity grade: 2+, Left brachioradialis reflex intensity grade: 2+, Right patellar reflex intensity grade: 2+ and Left patellar reflex intensity grade: 2+ Extrem General: No edema Immunizations tetanus-diphtheria toxoids-Td 2 Lf unit-2 Lf unit/0.5 mL IM suspension Performing Provider: Agnieszka Mora MD [facility] Administered by: GREGORY Tran on 11/13/23 13:27 Dose Route Admin Location Dispensed Lot Number Expiration Date NDC Chief Vendor Quality 0.5 mL IM Left Deltoid 0.5 mL [id number] 02/04/24 [id number] [employer] VIS Given Date VIS Provided VIS Publication Date 11/13/23 Single Vaccine 21 Eligibility Eligibility Date Funding Source Not [facility] Eligible 11/13/23 [facility] Assessment and Plan Assessment & Plan (1) Annual physical exam: Code(s): Z00.00 - Encounter for general adult medical examination without abnormal findings (2) Hypertension: Code(s): I10 - Essential (primary) hypertension Qualifiers: Hypertension type: essential hypertension Qualified Code(s): I10 - Essential (primary) hypertension Plan: Continue with blood pressure medication. Decrease salt intake and exercise patient takes hydrochlorothiazide 25 mg once a day (3) Hypercholesterolemia: Code(s): E78.00 - Pure hypercholesterolemia, unspecified Plan: Avoid fried foods, chicken skin, eggs, butter margarine, pastries and meat. Be it pork or beef they have a lot of cholesterol LDL goal of less than 130 and triglyceride of less than 150. Patient on simvastatin 10 mg at bedtime. June 2023 last blood work (4) Fatty liver: Code(s): K76.0 - Fatty (change of) liver, not elsewhere classified Plan: Low-fat diet and exercise (5) Generalized anxiety disorder: Code(s): F41.1 - Generalized anxiety disorder (6) Chest pain: Code(s): R07.9 - Chest pain, unspecified Orders: Orders CT chest wo con - High Res 4 Months R91.1 - Solitary pulmonary nodule CA stress test Today R07.9 - Chest pain, unspecified Td State Immunization Today Z23 - Encounter for immunization Medications: New alprazolam 0.25 mg PO BEDTIME PRN 7 tabs 0RF anxiety F41.1 - Generalized anxiety disorder Refilled simvastatin 10 mg PO BEDTIME 90 caps 3RF F41.1 - Generalized anxiety disorder Coding Level of Care Code Est Pt Prev Care >65y(06992) Diagnoses Annual physical exam Z00.00 Essential hypertension I10 Hypertension type: essential hypertension Hypercholesterolemia E78.00 Fatty liver K76.0 Generalized anxiety disorder F41.1 Chest pain R07.9
== END 2023-11-13 13:35 | disposition home or self-care (01) ==
PROVIDERS: Visit Provider Internal Medicine
DX: Z00.00 Encounter for general adult medical examination without abnormal findings (principal); I10 Essential (primary) hypertension; E78.00 Pure hypercholesterolemia, unspecified; Z23 Encounter for immunization; K76.0 Fatty (change of) liver, not elsewhere classified; F41.1 Generalized anxiety disorder; R07.9 Chest pain, unspecified
CPT/HCPCS: 90471; 90714; 99397

== ENCOUNTER → 2023-11-21 10:20 | Outpatient (REF) | payer MEDICARE, SELFPAY ==
--- NOTE | 2023-11-21 10:22 | CA_ITS ---
Acquisition Time: 2023-11-21 10:44:59 Total Exercise Time: 00:05:01 Test Indications: CHEST PAIN Medications: ASA HCTZ SIMVASTATIN Protocol: HUSSAIN Max HR: 142 BPM 100% of Pred: 141 BPM Max BP: 150/088 mmHG Max Work Load: 4.6 METS Exercise stress test exercise 5 min 1 sec of Hussain protocol stage 1 held due to heart rate at 100% at 2 mins achieving 102% MPHR, without anginal symptoms, without arrhythmias, with normotensive response to exercise, without EKG changes. Test reviewed with Dr. Houston Referred By: Agnieszka Mora Overread By: Karoline St
== END ==
LOC: HO.CARD 10:20
PROVIDERS: PCP Internal Medicine; Visit Provider Internal Medicine
DX: R07.9 Chest pain, unspecified (principal)
CPT/HCPCS: 93017

== ENCOUNTER → 2023-11-21 10:22 | Outpatient (BNV) | payer MEDICARE, SELFPAY | PROVIDERS: PCP Internal Medicine; Visit Provider Nurse Practitioner | DX: R07.9 Chest pain, unspecified (principal) | CPT/HCPCS: 93016; 93018 ==

== ENCOUNTER 2023-12-05 12:45 | Outpatient (REF) | payer MEDICARE, SELFPAY ==
--- NOTE | ~2023-12-05 | US_ITS ---
EXAMINATION: MM DIAGNOSTIC DIGITAL BREAST TOMOSYNTHESIS, BILATERAL US BREAST LIMITED, BILATERAL MAMMOGRAPHY: CLINICAL INFORMATION: Evaluate focal asymmetry is bilateral retroareolar regions seen on screening exam. COMPARISON: Mammography: 11/06/2023, 10/30/2022, 10/24/2021, 09/28/2020, 09/25/2019, 09/02/2018 TECHNIQUE: Digital breast tomosynthesis is performed in the following views: 3-D bilateral CC and MLO spot compression views. Computer-aided diagnosis was used for this study. This was followed by bilateral retroareolar diagnostic ultrasound. FINDINGS: The breasts are heterogeneously dense, which may obscure small masses (ACR BI-RADS breast composition Category c). Diagnostic views demonstrate mild bilateral retroareolar duct ectasia without evidence of suspicious mass, suspicious calcifications, or region of architectural distortion. The retroareolar regions have a similar appearance bilaterally when compared with exams dating back to 2018. We will evaluate the retroareolar regions with ultrasound. ULTRASOUND: CLINICAL INFORMATION: As above. COMPARISON: No prior contributory. TECHNIQUE: Targeted sonographic evaluation bilateral retroareolar regions was performed using a high frequency linear transducer. Selected archived documentation. FINDINGS: RIGHT BREAST: There is mild duct ectasia in the retroareolar region of the right breast. No suspicious mass, cystic abnormality, or abnormal acoustic shadowing. No ductal filling defect. LEFT BREAST: There is mild duct ectasia in the retroareolar region of the left breast. No suspicious mass, or abnormal acoustic shadowing. No ductal filling defect. There is a minimally complicated cyst in the 11:00 axis, 1 cm from the nipple, measuring 5 mm, benign. US/US breast BI limited mamm only IMPRESSION: There are no findings suspicious for malignancy in either breast. Mild bilateral retroareolar duct ectasia is present without evidence of intraductal filling defect. There is a minimally complex 5 mm cyst in the 11:00 axis of the left breast 1 cm from the nipple. This is benign. Recommend the patient return to routine annual screening. OVERALL ASSESSMENT: Mammography: BI-RADS 2 - Benign Findings Ultrasound: BI-RADS 2 - Benign Findings RECOMMENDATION: 1 year F/U This patient's information was entered into a reminder system with a target due date for their next mammogram.
== END 2023-12-05 12:46 | disposition home or self-care (01) ==
LOC: HO.MAMMO 12:45
PROVIDERS: PCP Internal Medicine; Visit Provider Internal Medicine
DX: N64.89 Other specified disorders of breast (principal)
CPT/HCPCS: 76642; 77062; 77066

== ENCOUNTER → 2023-12-05 13:30 | Outpatient (BNV) | payer MEDICARE, SELFPAY | PROVIDERS: PCP Internal Medicine; Visit Provider Radiology Diagnostic Radiology | DX: N60.41 Mammary duct ectasia of right breast (principal); N60.42 Mammary duct ectasia of left breast | CPT/HCPCS: 76642; 77066; G0279 ==

== ENCOUNTER 2024-03-06 08:24 | Outpatient (REF) | payer MEDICARE, SELFPAY ==
--- NOTE | ~2024-03-06 | CT_ITS ---
EXAMINATION: CT CHEST WITHOUT CONTRAST HIGH RESOLUTION CLINICAL INFORMATION: Solitary pulmonary nodule. COMPARISON: 03/28/2023 TECHNIQUE: Multidetector volumetric imaging was performed from the thoracic inlet through the lung bases without contrast. Sagittal and coronal reformatted images were obtained on the technologist workstation. Soft tissue and lung algorithms evaluated. This CT examination was performed using dose optimization techniques as appropriate, variously including the following: *Automated exposure control *Adjustment of mA and/or kV according to patient size (this includes techniques or standardized protocols for targeted exams where dose is matched to indication/reason for exam; i.e. extremities or head) *Use of iterative reconstruction technique DLP: 101 mGy-cm FINDINGS: Lungs are well aerated. Mild emphysematous changes are present. There is minimal biapical architectural scarring. No focal consolidation, pleural effusion or pneumothorax. Central airways are patent. Previously visualized approximately 1.5 cm right middle lobe groundglass opacity is stable. A few previously visualized subcentimeter pulmonary nodules are stable in size. No new or suspicious pulmonary nodules visualized. The heart is normal in size. Trace pericardial effusion. No coronary artery calcifications. Great vessels are of normal caliber. No axillary, mediastinal or hilar lymphadenopathy. Visualized portion of the upper abdomen demonstrate a moderate sized hiatal hernia. Left hepatic hypodensity measures 2.0 cm and is indeterminate. Surgical clips in the gallbladder fossa. No adrenal mass. No destructive bone lesions. CT/CT chest wo con - High Res IMPRESSION: Stable 1.5 cm right middle lobe groundglass opacity. No new or enlarging pulmonary nodules. Indeterminate left hepatic hypodensity measuring 2.0 cm. Further characterization with MRI abdomen is recommended.
== END 2024-03-06 08:25 | disposition home or self-care (01) ==
LOC: HO.CT 08:24
PROVIDERS: PCP Internal Medicine; Visit Provider Internal Medicine
DX: R91.1 Solitary pulmonary nodule (principal)
CPT/HCPCS: 71250

== ENCOUNTER 2024-05-05 10:28 | Outpatient (AMB) | payer MEDICARE, SELFPAY ==
--- NOTE | 2024-05-05 11:01 | MHC.OFFWIV ---
Intake Vital Signs 05/05/24 11:03 Height 4 ft 11.45 in Weight 66.678 kg BMI 29.2 BP 178/104 H Blood Pressure Location Lt brachial Position Standing Pulse 77 Pulse Source Pulse Oximeter Temp 97.1 F Temp Source Temporal Artery Scan Pulse Oximetry (%) 96 Oxygen Delivery Method Room Air Intake Visit Reasons: EP Back pain Intake Note: pt c/o back pain. Started Sunday afternoon. pulling out sofa bed Patient Tobacco Use Status: Former Tobacco user Allergies codeine [CODEINE] Allergy (Severe, Verified 05/05/24 11:02) BRONCHOSPASMS oxycodone [OXYCODONE] Allergy (Severe, Verified 05/05/24 11:02) BRONCHOSPASMS lisinopril Adverse Reaction (Intermediate, Verified 05/05/24 11:02) Headache Do you need a note to return to daycare/school/sports/work: No HPI EP Back pain HPI Details Patient presents with low back pain that developed acutely after attempting to pull out sofa bed. She states she braced her legs and pulled up on bed frame heard a crunch and felt immediate pain across her low back. She notes she has tried ibuprofen and Tylenol at home without much improvement. She did take gabapentin which she has for p.r.n. use at night which helps some. She denies cauda equina symptoms, abdominal pain. She does note she has known arthritis in her low back which she had previously taken meloxicam for. [facility] Medical History (Updated 03/22/24 @ 00:35 by Agnieszka oMra MD) LFT elevation Sinusitis Bronchitis Alopecia Diverticular disease Hypercholesterolemia Hypertension Surgical History History of surgery H/O basal cell carcinoma excision History of foot surgery History of thumb surgery History of appendectomy History of tonsillectomy History of total abdominal hysterectomy and bilateral salpingo-oophorectomy History of cholecystectomy Family History Father Lung cancer Mother Hypertension Stroke Paternal Aunt Breast cancer Brother Prostate cancer Social History (Updated 11/13/23 @ 13:09 by Agnieszka Mora MD) Housing: House Alcohol intake: current Comment: once a week 4 oz wine Patient Tobacco Use Status: Former Tobacco user Tobacco use type: Cigarette Years Smoked: quit 1962 2months of smoking only e-Cigarette/Vaping Use: Never Used Second Hand Smoke Exposure: No service: No Current occupational status: retired Cognitive needs: No Hearing needs: No Vision needs: Yes Review of Systems Const Reports as per HPI and Reports no additional complaints Card Reports as per HPI and Reports no additional complaints Resp Reports as per HPI and Reports no additional complaints GI Reports as per HPI and Reports no additional complaints Reports as per HPI Musc Reports no additional complaints and Reports as per HPI Neuro Reports no additional complaints and Reports as per HPI Physical Exam Vital Signs: Last Vital Signs Temp 97.1 F 05/05/24 11:03 Pulse 77 05/05/24 11:03 BP 178/104 H 05/05/24 11:03 Pulse Ox 96 05/05/24 11:03 Oxygen Delivery Method Room Air 05/05/24 11:03 BMI result Body Mass Index 29.2 Const General: cooperative, comfortable and no acute distress Orientation/consciousness: patient oriented x3 Resp Effort & Inspection: normal respiratory effort Auscultation: clear to auscultation bilaterally Cardio Rate: regular rate Rhythm: regular rhythm Heart sounds: S1 normal heart sound present and S2 normal heart sound present Back/Spine/Pelvis Thoracic/Lumbar Spine: thoracic and lumbar spine normal to inspection, pain with thoraco-lumbar ROM, paraspinal muscle tenderness (Lumbar and SI area) on the left greater than right, thoraco-lumbar ROM limited and No straight leg raise positive Neuro General: patient oriented x3 Gait exam (Neuro): Normal gait present (Difficulty transitioning from sit to stand due to pain) Motor exam (neuro): 5/5 motor strength present throughout (Strength sensation DTR of lower extremity normal negative straight leg rais) Results Reviewed Results Reviewed: X-ray of lumbar spine contemporaneously read by me without acute finding or compression fracture noted. There is significant DJD throughout the lumbar spine. Will report radiology results of different. Assessment & Plan Assessment & Plan (1) Lumbar strain: Code(s): S39.012A - Strain of muscle, fascia and tendon of lower back, initial encounter Qualifiers: Encounter type: initial encounter Qualified Code(s): S39.012A - Strain of muscle, fascia and tendon of lower back, initial encounter Plan: Patient to trial naproxen 500 b.i.d.. Can use Flexeril at night. Warned of sedating properties patient states she has taken it before and tolerated well. Return to clinic or PCP if symptoms persist consider physical therapy. Reviewed self rehab with gentle stretching as tolerated heat or ice or alternating the two. Return to normal activity as tolerated, avoid heavy lifting until feeling better. Orders: Orders XR lumbar spine 2-3V Today M54.50 - Low back pain, unspecified Medications: New cyclobenzaprine 5 mg PO BEDTIME PRN 20 tabs 0RF muscle spasm naproxen 500 mg PO BID 30 tabs 0RF Coding Level of Care Code Est Pt Level 4 (47065) Diagnoses Strain of lumbar region, initial encounter S39.012A Encounter type: initial encounter
[2024-05-05 11:03] VITALS: BP 178/104; PULSE 77; TEMP 36.2; O2SAT 96; BMI 29.2
== END 2024-05-05 12:16 | disposition home or self-care (01) ==
PROVIDERS: PCP Internal Medicine; Visit Provider Physician Assistant
DX: S39.012A Strain of muscle, fascia and tendon of lower back, initial encounter (principal)
CPT/HCPCS: 99214

== ENCOUNTER 2024-05-05 11:38 | Outpatient (REF) | payer MEDICARE, SELFPAY ==
--- NOTE | ~2024-05-05 | XR_ITS ---
EXAMINATION: XR LUMBOSACRAL SPINE CLINICAL INFORMATION: Low back pain, felt crunch when lifting sofa bed. COMPARISON: None available. TECHNIQUE: Three views of the lumbosacral spine. FINDINGS: Diffuse demineralization. Dextroscoliosis of the lumbar spine. Surgical clips right upper quadrant. Degenerative changes in the bilateral hips and sacroiliac joints. Superior and inferior vertebral body endplate concavities most notable at L3, of indeterminate age and etiology. Multilevel lumbar spondylosis most notable at L5-S1 with marked loss of disc space height, subchondral sclerosis and grade 1 anterolisthesis of L5 on S1. Possible spondylolysis at L5-S1. Multilevel facet arthritis. XR/XR lumbar spine 2-3V IMPRESSION: 1. Superior and inferior vertebral body endplate concavities most notable at L3, of indeterminate age and etiology. 2. Multilevel lumbar spondylosis most notable at L5-S1 with grade 1 anterolisthesis of L5 on S1. Possible spondylolysis at L5-S1. 3. Multilevel facet arthritis. 4. Additional imaging with CT scan or MRI should be considered for better visualization, particularly given history of recent trauma, as these modalities are much more sensitive for detection of fracture or other underlying pathology. This study was presented today May 05, 2024 for interpretation. Stat results provided at this time as requested by referring provider.
== END 2024-05-05 11:39 | disposition home or self-care (01) ==
LOC: HO.HMGCX 11:38
PROVIDERS: PCP Internal Medicine; Visit Provider Physician Assistant
DX: M54.50 Low back pain, unspecified (principal)
CPT/HCPCS: 72100

== ENCOUNTER 2024-05-14 12:56 | Outpatient (AMB) | payer MEDICARE, SELFPAY ==
--- NOTE | 2024-05-14 12:57 | A.OFFPC_ITS ---
Vital Signs 05/14/24 12:58 Height 4 ft 11 in Weight 143 lb BMI 28.9 BP 150/88 H Blood Pressure Location Lt brachial Position Sitting Pulse 104 H Pulse Source Pulse Oximeter Pulse Oximetry (%) 96 Oxygen Delivery Method Room Air Intake Visit Reasons: anxiety, chest pain Unloading Checker Required: No Accompanied by: Self / Same As Patient Allergies codeine [CODEINE] Allergy (Severe, Verified 05/14/24 12:59) BRONCHOSPASMS oxycodone [OXYCODONE] Allergy (Severe, Verified 05/14/24 12:59) BRONCHOSPASMS lisinopril Adverse Reaction (Intermediate, Verified 05/14/24 12:59) Headache Tobacco use date assessed: 11/13/23 Fall risk assessment: No Falls in past year Last assessed Fall Risk: 05/14/24 Dental Screening Dental Screen Date: 11/13/23 HPI anxiety, chest pain HPI Details 79-year-old overweight female with hyper tension hypercholesterolemia fatty liver and generalized anxiety disorder last seen in November 2023. Patient's colonoscopy is due for this year. Review of the notes had some x-rays of the lumbosacral area showing superior and inferior vertebral endplate concavities with lumbar spondylosis L5-S1 with grade 1 anterolisthesis L5-S1 possible spondylolysis L5-S1 multilevel facet arthritis was seen in the [facility] due to low back pain after pulling out sofa bed was given naproxen and Flexeril. With a history of pulmonary nodule a CT scan was done showing stable 1.5 cm right middle lobe ground-glass opacity no new enlarging pulmonary nodules. Incidental finding of a left hepatic hypodensity 2 cm and was advised to have an MRI. Patient also had a stress test done in November. As for the back pain this has happened 1 week ago when patient was pulling the sofa bed out and had a hard time had to fall back on the sofa because while pulling had crack sound on the back prompted for consultation. [facility] Medical History (Updated 05/14/24 @ 13:37 by Agnieszka Mora MD) LFT elevation Sinusitis Bronchitis Alopecia Diverticular disease Hypercholesterolemia Hypertension Surgical History History of surgery H/O basal cell carcinoma excision History of foot surgery History of thumb surgery History of appendectomy History of tonsillectomy History of total abdominal hysterectomy and bilateral salpingo-oophorectomy History of cholecystectomy Family History Father Lung cancer Mother Hypertension Stroke Paternal Aunt Breast cancer Brother Prostate cancer Social History (Updated 11/13/23 @ 13:09 by Agnieszka Mora MD) Housing: House Alcohol intake: current Comment: once a week 4 oz wine Patient Tobacco Use Status: Former Tobacco user Tobacco use type: Cigarette Years Smoked: quit 1961 2months of smoking only e-Cigarette/Vaping Use: Never Used Second Hand Smoke Exposure: No service: No Current occupational status: retired Cognitive needs: No Hearing needs: No Vision needs: Yes Questionnaire PHQ-9 Over the last 2 weeks, how often have you been bothered by any of the following problems? 1. Little interest or pleasure in doing things: not at all 2. Feeling down, depressed, or hopeless: not at all 3. Trouble falling or staying asleep, or sleeping too much: not at all 4. Feeling tired or having little energy: not at all 5. Poor appetite or overeating: not at all 6. Feeling bad about yourself - or that you are a failure or have let yourself or your family down: not at all 7. Trouble concentrating on things, such as reading the newspaper or watching television: not at all 8. Moving or speaking so slowly that other people could have noticed. Or the opposite - being so fidgety or restless that you have been moving around a lot more than usual: not at all 9. Thoughts that you would be better off or of hurting yourself in some way: not at all Total score: 0 Depression Screening Interpretation: Negative Depression Screening Done: Yes Source: Developed by Drs. Venkata Boo, Donna Shaw, Maulik Martinez and colleagues, with an educational tico from [employer]. Thrive Questionnaire Date Thrive assessed: 11/13/23 AUDIT C Alcohol Use Questionnaire (AUDIT-C) 1. How often do you have a drink containing alcohol?: Monthly or less 2. How many drinks containing alcohol do you have on a typical day when you are drinking?: 1 or 2 3. How often do you have six or more drinks on one occasion?: Never Total Score: 1 CARLOS-7 AMB Questionnaire CARLOS-7 Date CARLOS - 7 assessed: 11/13/23 Source: Developed by Drs. Venkata Boo, Donna Shaw, Maulik Martinez and colleagues, with an educational tico from [employer] [place]. Physical exam (Primary Care) Vital Signs: Last Vital Signs Pulse 104 H 05/14/24 12:58 BP 150/88 H 05/14/24 12:58 Pulse Ox 96 05/14/24 12:58 Oxygen Delivery Method Room Air 05/14/24 12:58 BMI result Body Mass Index 28.9 Tobacco/Smoking Status: Tobacco use Status Tobacco use date assessed 11/13/23 05/14/24 13:02 Patient Tobacco Use Status Former Tobacco user 05/14/24 13:02 Tobacco use type Cigarette 05/14/24 13:02 e-Cigarette/Vaping Use Never Used 05/14/24 13:02 PHQ-9: PHQ-9 Score PHQ-9: Total score 0 05/14/24 13:28 Depression Screening Interpretation: Negative Thrive Assessment: Date of Thrive Assessment Date Thrive assessed 11/13/23 05/14/24 13:02 Const General: alert; No acute distress Eyes Conjunctivae: conjunctivae normal Resp Auscultation: clear to auscultation bilaterally Cardio Rate: regular rate Rhythm: regular rhythm GI Inspection: Yes normal to inspection Extrem General: Yes normal to inspection and No edema Assessment and Plan Assessment & Plan (1) Hypertension: Code(s): I10 - Essential (primary) hypertension Qualifiers: Hypertension type: essential hypertension Qualified Code(s): I10 - Essential (primary) hypertension Plan: Continue with blood pressure medication. Decrease salt intake and exercise on hydrochlorothiazide 25 mg once a day (2) Hypercholesterolemia: Code(s): E78.00 - Pure hypercholesterolemia, unspecified Plan: Avoid fried foods, chicken skin, eggs, butter margarine, pastries and meat. Be it pork or beef they have a lot of cholesterol LDL goal of less than 130 and triglyceride of less than 150 (3) Generalized anxiety disorder: Code(s): F41.1 - Generalized anxiety disorder Plan: stable and has not required med (4) Fracture of lumbar spine: Code(s): S32.009A - Unspecified fracture of unspecified lumbar vertebra, initial encounter for closed fracture Plan: discussed about my doubt of fracture but will have CT scan anyway and sent for PT (5) Hip pain, left: Code(s): M25.552 - Pain in left hip Plan: xray of L hip (6) Low back pain: Code(s): M54.50 - Low back pain, unspecified Plan: will sedn for PT, trial of steroid Orders: Orders XR hip LT w PEL1V Today M25.552 - Pain in left hip Comprehensive Met. Panel Today E78.00 - Pure hypercholesterolemia, unspecified Lipid Panel Today E78.00 - Pure hypercholesterolemia, unspecified Erythrocyte Sedimentation Rate Today E78.00 - Pure hypercholesterolemia, unspecified PT Evaluation and Treatment Today M54.50 - Low back pain, unspecified Complete Blood Count Auto Diff Today E78.00 - Pure hypercholesterolemia, unspecified Free T4 (Free Thyroxine) Today E78.00 - Pure hypercholesterolemia, unspecified Thyroid Stimulating Hormone Today E78.00 - Pure hypercholesterolemia, unspecified Vitamin B12 and Folate Today E78.00 - Pure hypercholesterolemia, unspecified Vitamin D 25-OH Total Today E78.00 - Pure hypercholesterolemia, unspecified Medications: New prednisone 4 tabs QD x 2 days then 3 tabs QD x 2 days then 2 tabs Qd x 2 days then 1 tab QD x 2 days PO daily; 20 tabs 0RF J45.909 - Unspecified asthma, uncomplicated, M54.50 - Low back pain, unspecified Coding Level of Care Code Est Pt Level 4 (01630) Diagnoses Essential hypertension I10 Hypertension type: essential hypertension Hypercholesterolemia E78.00 Generalized anxiety disorder F41.1 Fracture of lumbar spine S32.009A Hip pain, left M25.552 Low back pain M54.50
[2024-05-14 12:58] VITALS: BP 150/88; PULSE 104; O2SAT 96; BMI 28.9
== END 2024-05-14 13:46 | disposition home or self-care (01) ==
PROVIDERS: PCP Internal Medicine; Visit Provider Internal Medicine
DX: I10 Essential (primary) hypertension (principal); E78.00 Pure hypercholesterolemia, unspecified; F41.1 Generalized anxiety disorder; S32.009A Unspecified fracture of unspecified lumbar vertebra, initial encounter for closed fracture; M25.552 Pain in left hip; M54.50 Low back pain, unspecified
CPT/HCPCS: 99214

== ENCOUNTER 2024-05-14 13:55 | Outpatient (REF) | payer MEDICARE, SELFPAY ==
--- NOTE | ~2024-05-14 | XR_ITS ---
EXAMINATION: XR HIP, LEFT CLINICAL INFORMATION: Chronic left hip pain COMPARISON: None available. TECHNIQUE: Frontal view of the pelvis with 2 views of the left hip. of the left hip. FINDINGS: Alignment is anatomic. There is symmetric moderate joint space narrowing bilaterally with subchondral sclerosis, subchondral cystic change, and marginal osteophytes. No discrete fracture or suspicious osseous lesion. The bowel gas pattern is unremarkable. XR/XR hip LT w PEL1V IMPRESSION: Moderate osteoarthritis of the hips. Electronically signed by: Kyle Forrester MD 05/30/2024 03:21 PM EDT
== END 2024-05-14 13:56 | disposition home or self-care (01) ==
LOC: HO.XRAY 13:55
PROVIDERS: PCP Internal Medicine; Visit Provider Internal Medicine
DX: M25.552 Pain in left hip (principal)
CPT/HCPCS: 73502

== ENCOUNTER 2024-06-06 13:02 | Outpatient (REF) | payer MEDICARE, SELFPAY ==
--- NOTE | ~2024-06-06 | CT_ITS ---
EXAMINATION: CT LUMBAR SPINE WITHOUT CONTRAST CLINICAL INFORMATION: Unspecified fracture of lumbar vertebra. COMPARISON: Plain films lumbar spine 05/05/2024 TECHNIQUE: CT imaging of the lumbar spine was done without IV contrast, spirally. Sagittal, coronal, and thin section axial reformatted images were constructed from the axial data set. This CT examination was performed using dose optimization techniques as appropriate, variously including the following: *Automated exposure control *Adjustment of mA and/or kV according to patient size (this includes techniques or standardized protocols for targeted exams where dose is matched to indication/reason for exam; i.e. extremities or head) *Use of iterative reconstruction technique DLP: 537 mGy-cm FINDINGS: CORONAL ALIGNMENT: -There is a mild dextroconvex scoliosis, apex at L2-3. SAGITTAL ALIGNMENT: -There is a normal lumbar lordosis. -There is a trace degenerative retrolisthesis of L1 on L2. -There is a 3 mm degenerative type anterolisthesis of L5 on S1. -Alignment is otherwise anatomic. LUMBOSACRAL JUNCTION: -Normal. There are 5 [id number] lumbar-type vertebral bodies. VERTEBRAL BODIES: -There is no suspicious or infiltrating lytic or blastic bone lesion. -There is an approximate 40% acute/subacute superior endplate compression fracture of L3. There is minimal, 2 mm retropulsion of bone involving the superior endplate into the ventral epidural space. No significant canal compromise or stenosis. -There appears to be an associated linear fracture through the right pedicle. The left pedicle appears intact. Lamina appears intact. This does not appear unstable. -There also appears to be a subtle corner fracture of the inferior anterior endplate of L2. -In addition, there is a subtle superior endplate right lateral corner fracture of L2 with no displacement or loss of height. -There is a suspected nondisplaced vertical fracture through the right transverse process of L1. -No additional fractures identified. No evidence of sacral fracture. No additional pedicular or laminar fractures. DISCS: -Severe loss of disc height with disc vacuum phenomenon at L5-S1, with sclerotic and irregular endplate changes. Minimal anterolisthesis at this level from degenerative disc and facet changes, as well as a left-sided pars defect (with a developmental appearance as opposed to an acquired pars defect). -Otherwise, only mild degenerative disc changes most notable T12-L4. SPINAL CANAL: -No abnormal developmental narrowing or definite acquired narrowing. See below. -No epidural hematoma appreciated. AXIAL DISC SPACE IMAGES: T12-L1: Minimal disc osteophytic ridge complex present, without central canal narrowing. Normal facets. No lateral recess or neural foraminal narrowing. L1-L2: There is a prominent disc osteophytic bulge which is asymmetrically prominent left lateral and foraminal. This indents upon the ventral thecal sac, and results in minimal central canal narrowing, minimal left subarticular recess narrowing, mild to moderate left neural foraminal narrowing. There is no right neural foraminal narrowing. L2-L3: Mild retropulsion of the superior endplate of L3 by approximately 2 mm. There is an aerated and associated shallow concentric disc osteophytic ridge complex, with superimposed left foraminal protrusion of disc material. Mild degenerative facet changes bilaterally. Mild posterior ligamentous thickening/infolding. Combination of findings is resulting in mild central canal narrowing, mild to moderate left and mild right subarticular recess narrowing, mild right and [id number] left neural foraminal narrowing. No gross neural impingement. L3-L4: Shallow diffuse disc bulge is present, slightly asymmetrically prominent into the left foramen and left lateral to foramen. Mild hypertrophic degenerative facet changes bilaterally with posterior ligamentous infolding/thickening. Findings result in mild central canal stenosis, mild to moderate bilateral subarticular recess stenosis, and mild to moderate bilateral neural foraminal narrowing. L4-L5: There is a diffuse concentric disc bulge present, slightly asymmetrically prominent to the right and into the right foraminal zone. There are moderate hypertrophic degenerative facet changes bilaterally, with posterior ligamentous thickening/infolding. Combination of findings is resulting in mild to moderate central canal stenosis, moderate bilateral right greater than left subarticular recess stenosis, and mild bilateral neural foraminal narrowing. L5-S1: There is developmental deformity of the left lamina, medial and lateral articular facet, with a small focus of spina bifida occulta (series 4, image 85). There is a diffuse extrusion of disc material which is concentrically involving both foraminal zones and lateral to foramen. There is severe right sided degenerative hypertrophic facet changes, and dysmorphic appearance of the left facet, with full-thickness left pars defect. Combination of findings is resulting in moderate central canal stenosis, moderate to severe bilateral subarticular recess stenosis right greater than left, and moderate to severe right greater than left neural foraminal stenosis. Cannot rule out mild mass effect upon the traversing S1 roots, nor the exiting L5 roots. IMAGED SI JOINTS: Intact with moderate degenerative arthrosis and vacuum phenomenon. PARAVERTEBRAL AND INCLUDED EXTRASPINAL SOFT TISSUES: The aorta is normal in caliber, with mild atheromatous calcification. It is mildly tortuous. There is no aneurysm. -There is persistent lobulation of both kidneys. -There has been a cholecystectomy. -A normal appendix is visualized. -No retroperitoneal adenopathy is present. -The paraspinous and paravertebral musculature demonstrates mild atrophy. CT/CT lumbar spine wo IV con IMPRESSION: 1. Approximate 40% acute/subacute compression deformity of L3 superior endplate, with only 2 mm of retropulsion of bone into the central canal. No resultant central canal stenosis. No evidence of epidural hematoma. 2. Subtle corner fractures of the anterior superior and inferior endplates of L2 without loss of height. 3. Nondisplaced fracture through the right transverse process of L1. 4. Severe degenerative disc changes at L5-S1 with a 3 mm degenerative anterolisthesis, based upon a full thickness left pars defect which appears developmental as opposed to acquired. There is a dysplastic left facet at this level. See above for details. 5. There is no high-grade central canal or lateral recess stenosis at any level. There is significant neural foraminal narrowing at L5-S1 bilaterally. See above. Electronically signed by: Carlos St MD 06/30/2024 02:08 PM EDT
== END 2024-06-06 13:03 | disposition home or self-care (01) ==
LOC: HO.CT 13:02
PROVIDERS: PCP Internal Medicine; Visit Provider Internal Medicine
DX: S32.009A Unspecified fracture of unspecified lumbar vertebra, initial encounter for closed fracture (principal)
CPT/HCPCS: 72131

== ENCOUNTER → 2024-06-06 13:04 | Outpatient (BNV) | payer MEDICARE, SELFPAY | PROVIDERS: PCP Internal Medicine; Visit Provider Radiology Diagnostic Radiology | DX: S32.009A Unspecified fracture of unspecified lumbar vertebra, initial encounter for closed fracture (principal) | CPT/HCPCS: 72131 ==

== ENCOUNTER 2024-08-07 15:24 | Emergency (ER) | payer MEDICARE, SELFPAY ==
--- NOTE | 2024-08-07 15:37 | ED_ITS ---
HPI - General Adult General Chief complaint: General Medical Stated complaint: high bp-sore throat Time Seen by Provider: 08/07/24 16:35 Source: patient, RN notes reviewed and old records reviewed Mode of arrival: ambulatory Limitations: no limitations History of Present Illness ED Provider: Farhan HPI narrative: 79 old female with history of hypertension on hydrochlorothiazide, hyperlipidemia on simvastatin presents for evaluation of elevated blood pressure. Patient reports for the last couple of weeks she has noticed increase in blood pressure. She is a retired nurse and has been taking her blood pressure multiple times per day. The highest she has found it to be was 184 systolic. She reports being compliant with her hydrochlorothiazide 25 mg daily She mentioned it to her primary doctor last week who felt it was related to her back pain as she had a recent compression fracture. The patient states that Sunday she had a kyphoplasty in her back pain has resolved but her blood pressure has not improved She reports some ?achiness in my neck that seems to be related to my blood pressure being elevated. ? She states this is not the same as a sore throat and does not hurt to swallow She denies any chest pain, shortness of breath, leg swelling No other complaints or concerns at this time Related Data Home Medications ?Medication ?Instructions ?Recorded ?Confirmed ascorbic acid (vitamin C) 1,000 mg 1 g PO DAILY 10/13/20 11/13/23 tablet aspirin 81 mg tablet,delayed 81 mg PO DAILY 10/13/20 11/13/23 release (Adult Aspirin Regimen) lactobacillus combination no.8 3 3,000 mmu cells PO DAILY 10/13/20 11/13/23 billion cell capsule (Adult Probiotic) multivitamin 1 tab PO DAILY 10/13/20 11/13/23 omega-3 fatty acids 500 mg capsule 500 mg PO DAILY 10/13/20 11/13/23 docusate sodium 100 mg capsule 100 mg PO BID 10/25/21 11/13/23 (Colace) psyllium husk 3.4 gram/5.4 gram 1 tbsp PO BID 10/25/21 11/13/23 oral powder (Metamucil) Previous Rx's ?Medication ?Instructions ?Recorded cetirizine 10 mg tablet 10 mg PO DAILY PRN allergy 02/23/23 symptoms 30 days #30 tabs simvastatin 10 mg tablet 10 mg PO BEDTIME #90 caps 11/13/23 hydrochlorothiazide 25 mg tablet 25 mg PO DAILY 90 days #90 tabs 01/28/24 cyclobenzaprine 5 mg tablet 5 mg PO BEDTIME PRN muscle spasm 06/27/24 #30 tabs lidocaine 5 % topical patch 2 patch topical DAILY #15 ea 07/31/24 hydrochlorothiazide 50 mg tablet 50 mg PO DAILY #30 tabs 08/07/24 Allergies Allergy/AdvReac Type Severity Reaction Status Date / Time codeine [CODEINE] Allergy Severe BRONCHOSPAS Verified 08/07/24 15:43 MS oxycodone [OXYCODONE] Allergy Severe BRONCHOSPAS Verified 08/07/24 15:43 MS ketorolac [From Toradol] Allergy Unknown Verified 08/07/24 15:43 lisinopril AdvReac Intermediate Headache Verified 08/07/24 15:43 Review of Systems 2 Constitutional: Constitutional: Denies body ache(s), Denies chills, Denies fever(s) and Denies headache(s) Eyes: Eyes: Denies blurry vision ENT: Denies vertigo, Denies dizziness, Denies headache(s) and Reports neck pain Cardiovascular: Cardiovascular: Reports chest pain and Denies dyspnea Respiratory: Respiratory: Denies cough and Denies dyspnea Musculoskeletal: Musculoskeletal: Denies back pain, Reports neck pain, Denies stiffness and Denies tingling Integumentary/Breasts: Skin/Breast: Denies rash Neurologic: Denies vertigo, Denies dizziness, Denies headache(s) and Denies tingling Psychiatric: Psychiatric: Denies anxiety [facility] Past Medical History Medical History (Updated 08/07/24 @ 17:18 by Juanpablo Real) LFT elevation Sinusitis Bronchitis Alopecia Diverticular disease Hypercholesterolemia Hypertension Surgical History History of surgery H/O basal cell carcinoma excision History of foot surgery History of thumb surgery History of appendectomy History of tonsillectomy History of total abdominal hysterectomy and bilateral salpingo-oophorectomy History of cholecystectomy Family History Family History Father Lung cancer Mother Hypertension Stroke Paternal Aunt Breast cancer Brother Prostate cancer Social History Social History (Updated 11/13/23 @ 13:09 by Agnieszka Mora MD) Housing: House Alcohol intake: current Comment: once a week 4 oz wine Patient Tobacco Use Status: Former Tobacco user Tobacco use type: Cigarette Years Smoked: quit 1961 2months of smoking only Smoked in Last 30 Days: No e-Cigarette/Vaping Use: Never Used Second Hand Smoke Exposure: No Use of substances other than those prescribed or required for medical reasons: No Advance Directives: No Advance Directives Information Provided: Yes service: No Current occupational status: retired Cognitive needs: No Hearing needs: No Vision needs: Yes Physical Exam ED Vital Signs: Vital Signs - 24 hr 08/07/24 15:42 08/07/24 16:37 08/07/24 17:45 Temperature 98.1 F 98.4 F Pulse Rate 102 H 89 80 Respiratory Rate 16 18 18 Blood Pressure 199/93 H 182/96 H 155/73 H Pulse Oximetry 99 99 99 Oxygen Delivery Method Room Air Room Air Room Air BMI result Body Mass Index 28.3 Const General: healthy appearing, comfortable, no acute distress, alert and awake Nutritional Appearance: well nourished Orientation/consciousness: patient oriented x3 HENMT Head: Yes normocephalic and Yes atraumatic Throat: Yes posterior oropharynx normal Eyes Eyelids: Yes eyelids normal Conjunctivae: conjunctivae normal Sclerae: sclerae normal Corneas: corneas normal Pupils: Equal, round and reactive pupils present EOM: EOMs intact bilaterally Neck Neck: Yes full ROM, No anterior neck swelling and No lymphadenopathy Resp Effort & Inspection: normal respiratory effort, able to speak in complete sentences, no audible wheezes and not labored Auscultation: clear to auscultation bilaterally Cardio Other: No lower extremity edema Rate: regular rate Rhythm: regular rhythm GI Inspection: No distended Palpation (GI): Soft to palpation, not firm, nontender, no guarding and not rigid Skin General skin exam: no rashes or lesions noted and elasticity normal Neuro General: patient oriented x3 Cranial nerves: Yes Equal, round and reactive pupils present and Yes Bilaterally intact EOM present Cognition (Neuro): normal cognition Extrem Other: Moving all extremities well without any obvious deformities Course Course Course Narrative: This is an RME: Additional HPI, ROS, PE not included below will be deferred to primary provider. RME assessment and note performed by: Rena Olvera PA-C This is a 18-ddml-ewy-female, hypertension, hypercholesterolemia fatty liver and generalized anxiety disorder, who presents to the ER with complaints of increased heart rate, high blood pressure. Reporting HBP started during intake for kypoplasty last wee Spoke to Dr. Mora due to increased BP but Dr. Mora attributed to pain. She states that she had kypoplasty on sunday but continues to have elevated BP at home. Has been compliant on her medications. Reports BP 185/109 today. Reporting throat pain as well. Plan: Labs, EKG, further ER eval needed Medical Decision Making Medical Decision Making MDM Narrative: 79 old female with past medical history as documented above presents for evaluation of elevated blood pressure. She reports a tightness in her neck but denies any chest pain or shortness of breath. Plan for cardiac workup. Patient's EKG shows a normal sinus rhythm with a right bundle branch block that was previously noted on June of 2023. No ST segment elevation [place]. Differential Diagnosis Differential Diagnoses: The differential diagnosis associated with the presentation includes High blood pressure Hypertension Hyperlipidemia ACS Medication noncompliance Lab Data 08/07/24 17:01 08/07/24 17:01 Labs: Lab Results 08/07/24 Range/Units 17:01 WBC 8.4 (4.8-10.8) X10*3/uL RBC 4.61 (4.20-5.50) X10*6/uL Hgb 14.0 (12.0-16.0) g/dl Hct 41.3 (37.0-47.0) % MCV 89.6 (80.0-98.0) fL MCH 30.4 (27.0-33.0) pg MCHC 33.9 (31.0-35.0) g/dl RDW 13.9 (11.0-16.0) % Plt Count 277 (160-400) X10*3/uL MPV 9.2 L (9.4-12.3) fL Immature Gran % (Auto) 0.5 H (0.0-0.4) % Neut % (Auto) 77.7 H (45-73) % Lymph % (Auto) 13.9 L (20-40) % Dubois % (Auto) 6.3 (2-11) % Eos % (Auto) 1.2 (0-4) % Baso % (Auto) 0.4 (0-2) % Lymph # (Auto) 1.2 (1.2-4.9) X10*3/uL Dubois # (Auto) 0.5 (0.1-1.2) X10*3/uL Eos # (Auto) 0.1 (0.0-0.4) X10*3/uL Baso # (Auto) 0.0 (0.0-0.2) X10*3/uL Abs Immat Gran (auto) 0.04 H (0.00-0.03) X10*3/uL Absolute Neuts (auto) 6.5 (2.0-8.3) x10*3/uL Absolute Nucleated RBC 0.000 (0.0-0.012) X10*3/uL Nucleated RBC % (auto) 0.0 (0.0-0.2) /100WBC PT 11.1 (10.9-12.4) SEC INR 1.0 (0.9-1.1) Sodium 142 (135-145) mmol/L Potassium 3.5 (3.3-5.1) mmol/L Chloride 105 (96-108) mmol/L Carbon Dioxide 27 (22-29) mmol/L Anion Gap 14 (12-20) BUN 22 H (9-16) mg/dL Creatinine 0.60 (0.5-1.4) mg/dL Estim Creat Clear Calc 63.2 Estimated GFR > 60 Random Glucose 96 (60-115) mg/dL Calcium 8.9 D (8.4-10.2) mg/dL Magnesium 2.2 (1.6-2.6) mg/dL Total Bilirubin 0.4 (0.0-1.0) mg/dL Direct Bilirubin 0.1 (0.0-0.5) mg/dL AST 30 (5-31) U/L ALT 27 (0-31) U/L Alkaline Phosphatase 98 (39-117) U/L Troponin I High Sens < 2.7 (<3.5-17.0) ng/L Total Protein 7.0 (6.5-8.0) g/dL Albumin 4.3 (3.5-5.0) g/dL Lipase 22 (8-78) U/L Influenza Type A (PCR) NEGATIVE (Negative) Influenza Type B (PCR) NEGATIVE (Negative) RSV RNA Qual (PCR) NEGATIVE (Negative) SARS-CoV-2 RNA (RT-PCR) NEGATIVE (Negative) S. pyogenes GrpA MARY JANE Negative (Negative) Discharge Plan Discharge Clinical Impression: Hypertension Patient Disposition: Home, Self-Care Instructions: Hypertension (ED) Additional Instructions: Your workup in the ER today was reassuring. I recommend increasing your HCTZ to 50 mg daily Call your primary doctor tomorrow morning to let them know of the medication adjustment Return for new or worsening symptoms Prescriptions: New hydrochlorothiazide 50 mg tablet 50 mg PO DAILY Qty: 30 0RF No Action hydrochlorothiazide 25 mg tablet 25 mg PO DAILY 90 Days Qty: 90 3RF cyclobenzaprine 5 mg tablet 5 mg PO BEDTIME PRN (Reason: muscle spasm) Qty: 30 0RF lidocaine 5 % adhesive patch,medicated 2 patch topical DAILY Qty: 15 0RF Rx Instructions: leave on most painful area for up to 12 hrs ascorbic acid (vitamin C) 1,000 mg tablet 1 g PO DAILY multivitamin Tablet 1 tab PO DAILY omega-3 fatty acids 500 mg capsule 500 mg PO DAILY aspirin [Adult Aspirin Regimen] 81 mg tablet,delayed release (DR/EC) 81 mg PO DAILY Adult Probiotic 3 billion cell capsule 3,000 mmu cells PO DAILY Rx Instructions: administer with a meal Metamucil 3.4 gram/5.4 gram powder 1 tbsp PO BID Rx Instructions: mix into at least 8 oz of water or juice before administering docusate sodium [Colace] 100 mg capsule 100 mg PO BID simvastatin 10 mg tablet 10 mg PO BEDTIME Qty: 90 3RF cetirizine 10 mg tablet 10 mg PO DAILY PRN (Reason: allergy symptoms) 30 Days Qty: 30 0RF Print Language: Fijian
--- NOTE | 2024-08-07 15:41 | ECG_ITS ---
Test Reason : elevated BP Blood Pressure : / mmHG Vent. Rate : 083 BPM Atrial Rate : 083 BPM P-R Int : 138 ms QRS Dur : 128 ms QT Int : 390 ms P-R-T Axes : 043 -03 014 degrees QTc Int : 458 ms Normal sinus rhythm Right bundle branch block Abnormal ECG When compared with ECG of 06-JUN-2023 07:46, ST now depressed in Anterior leads Referred By: Rena Olvera Electronically Signed By:JENY BASSETT MD
[2024-08-07 15:42] VITALS: BP 199/93; PULSE 102; RESP 16; TEMP 36.7; O2SAT 99; BMI 28.3
[2024-08-07 16:37] VITALS: BP 182/96; PULSE 89; RESP 18; TEMP 36.9; O2SAT 99
[2024-08-07 17:08] LABS: MANUAL DIFF FLAG NO
[2024-08-07 17:10] LABS: Basophils Percent Auto 0.4 % (0-2); Eosinophils Absolute Auto 0.1 X10*3/uL (0.0-0.4); Eosinophils Percent Auto 1.2 % (0-4); Hematocrit 41.3 % (37.0-47.0); Imm Gran Abs Auto 0.04 X10*3/uL (0.00-0.03); Imm Gran Pct Auto 0.5 % (0.0-0.4); Lymphocytes Absolute Auto 1.2 X10*3/uL (1.2-4.9); Lymphocytes Percent Auto 13.9 % (20-40); Mean Corpuscular HGB Conc 33.9 g/dl (31.0-35.0); Mean Corpuscular Hemoglobin 30.4 pg (27.0-33.0); Mean Corpuscular Volume 89.6 fL (80.0-98.0); Mean Platelet Volume 9.2 fL (9.4-12.3); Monocytes Absolute Auto 0.5 X10*3/uL (0.1-1.2); Monocytes Percent Auto 6.3 % (2-11); Neutrophils Absolute Auto 6.5 x10*3/uL (2.0-8.3); Neutrophils Percent Auto 77.7 % (45-73); Platelet Count 277 X10*3/uL (160-400); Red Blood Count 4.61 X10*6/uL (4.20-5.50); Red Cell Distribution Width 13.9 % (11.0-16.0); White Blood Count 8.4 X10*3/uL (4.8-10.8)
[2024-08-07 17:17] LABS: IDNOW Serial# 08D9AD1C; Strep A Nucleic Acid Negative (Negative)
[2024-08-07 17:18] LABS: Prothrombin Time 11.1 SEC (10.9-12.4)
--- NOTE | 2024-08-07 17:20 | PC.NURSE ---
pt reporting htn and throat pain. she has been keeping track of her blood pressures at home. Takes 25mg HCTZ at home. Today ther BP was 170/100+ systolic at home and she came in. A&O, ambulatory.
[2024-08-07 17:24] LABS: Alanine Aminotransferase 27 U/L (0-31); Albumin Level 4.3 g/dL (3.5-5.0); Alkaline Phosphatase 98 U/L (39-117); Anion Gap 14 (12-20); Aspartate Amino Transferase 30 U/L (5-31); Bilirubin Direct 0.1 mg/dL (0.0-0.5); Bilirubin Total 0.4 mg/dL (0.0-1.0); Blood Urea Nitrogen 22 mg/dL (9-16); Calcium 8.9 mg/dL (8.4-10.2); Carbon Dioxide 27 mmol/L (22-29); Chloride 105 mmol/L (96-108); Creatinine Clr Calc Pharmacy 63.2; Estimated Glomerular Filt Rate > 60; Glucose Random 96 mg/dL (60-115); Lipase 22 U/L (8-78); Magnesium 2.2 mg/dL (1.6-2.6); Potassium 3.5 mmol/L (3.3-5.1); Sodium 142 mmol/L (135-145)
[2024-08-07 17:33] LABS: Troponin-I High Sensitivity < 2.7 ng/L (<3.5-17.0)
[2024-08-07 17:45] VITALS: BP 155/73; PULSE 80; RESP 18; O2SAT 99
[2024-08-07 17:47] LABS: Influenza A PCR NEGATIVE (Negative); Influenza B PCR NEGATIVE (Negative); Resp Syncy Virus RNA Qual PCR NEGATIVE (Negative); SARS COV2 PCR INHOUSE NEGATIVE (Negative)
[2024-08-07 18:15] VITALS: BP 155/73; PULSE 80; RESP 18; TEMP 36.6; O2SAT 99
== END 2024-08-07 18:15 | disposition home or self-care (01) ==
PROVIDERS: Physician Assistant Medical; Emergency Provider Internal Medicine; PCP Internal Medicine
DX: J02.9 Acute pharyngitis, unspecified (principal); I45.10 Unspecified right bundle-branch block; R10.2 Pelvic and perineal pain; I10 Essential (primary) hypertension; R94.31 Abnormal electrocardiogram [ECG] [EKG]; Z03.818 Encounter for observation for suspected exposure to other biological agents ruled out; Z79.899 Other long term (current) drug therapy
CPT/HCPCS: 0241U; 36415; 80048; 80076; 83690; 83735; 84484; 85025; 85610; 87651; 93005; 99283; 99284

== ENCOUNTER → 2024-08-07 15:41 | Outpatient (BNV) | payer MEDICARE, SELFPAY | PROVIDERS: Emergency Provider Internal Medicine; PCP Internal Medicine; Visit Provider Internal Medicine Cardiovascular Disease | DX: R94.31 Abnormal electrocardiogram [ECG] [EKG] (principal) | CPT/HCPCS: 93010 ==

== ENCOUNTER 2024-08-27 13:17 | Outpatient (REF) | payer MEDICARE, SELFPAY ==
--- NOTE | ~2024-08-27 | MM_ITS ---
EXAMINATION: BONE DENSITOMETRY CLINICAL INDICATION: Age-related osteoporosis without current pathological fracture. COMPARISON: Previous BD dated 10/24/2018 and baseline BD dated 10/11/2006. TECHNIQUE: Using a Videregen DXA System (software version: 13.1) manufactured by [employer], dual-energy x-ray absorptiometry was performed of the lumbar spine and left hip. The images are of good technical quality. Summary results are attached. FINDINGS: LEFT FEMUR, NECK: Current: BMD 0.90. g/cm2, Z-score 1.2, T-score -1.0, normal. Prior: BMD 0.801 g/cm2. Baseline: BMD 0.885 g/cm2. LEFT FEMUR, TOTAL: Current: BMD 0.949 g/cm2, Z-score 1.6, T-score -0.5, normal, 4.7% increase from previous, 5.8% decrease from baseline (<5% change is not significant). Prior: BMD 0.906 g/cm2. Baseline: BMD 1.007 g/cm2. AP SPINE L1-L4 (excluding L3): The data of L1-L4 has been changed to exclude the L3 vertebral body, because at this level may cause overestimation of lumbar spine density. Current: BMD 0.896 g/cm2, Z-score -0.5, T-score -2.3, osteopenia, 1.4% increase from previous, 13.0% decrease from baseline (<5% change is not significant). Prior: BMD 0.884 g/cm2. Baseline: BMD 1.030 g/cm2. IDENTIFIED RISK FACTORS: Early menopause, family history (parent hip fracture), height loss, history of fracture (adult), hysterectomy, thiazide, secondary osteoporosis, bilateral oophorectomy. HISTORY OF FRACTURE: Spine. MEDICATIONS: Multivitamin. MM/XR DEXA axial skeleton IMPRESSION: 1. DIAGNOSIS: Osteopenia based on the lowest T-score value of -2.3 in the lumbar spine applying World Health Organization criteria. 2. 10-YEAR FRACTURE RISK PREDICTION, FRAX: Major osteoporotic fracture (clinical spine, forearm, hip or shoulder) 25.9%. Hip fracture 11.9%. 3. Treatment Recommendations: NOF guidelines recommend consideration for treatment in postmenopausal women and men age 50 and older presenting with the following: -A hip or vertebral (clinical or morphometric) fracture. -T-score less than or equal to -2.5 at the femoral neck or spine after appropriate evaluation to exclude secondary causes. -Low bone mass at the hip or spine and a 10-year fracture probability by FRAX of greater than or equal to 3% for hip fracture or greater than or equal to 20% for major osteoporotic fracture based on the [place] adapted WHO algorithm. 4. Other Recommendations: All treatment decisions require clinical judgment and consideration of individual patient factors, including patient preferences, comorbidities, previous drug use, risk factors not captured in the FRAX model (e.g. frailty, falls, vitamin D deficiency, increased bone turnover, interval significant decline in bone density) and possible under or overestimation of fracture risk by FRAX. Additional medical evaluation for secondary cause of low bone mineral density may be appropriate. FUTURE SCAN RECOMMENDATION: People with diagnosed cases of osteoporosis or at high risk for fracture should have regular bone mineral density tests. For patients eligible for Medicare, routine testing is allowed once every 2 years. The testing frequency can be increased to one year for patients who have rapidly progressing disease, those who are receiving or discontinuing medical therapy to restore bone mass, or have additional risk factors. Electronically signed by: Wendy Blanchard MD 08/27/2024 05:34 PM TORY RAY
== END 2024-08-27 13:18 | disposition home or self-care (01) ==
LOC: HO.MAMMO 13:17
PROVIDERS: PCP Internal Medicine; Visit Provider Internal Medicine
DX: M81.0 Age-related osteoporosis without current pathological fracture (principal); S32.009A Unspecified fracture of unspecified lumbar vertebra, initial encounter for closed fracture
CPT/HCPCS: 77080

== ENCOUNTER 2024-11-08 07:15 | Outpatient (REF) | payer MEDICARE, SELFPAY ==
--- OUTSIDE RECORDS SUMMARY | 2024-11-08 07:17 | XMS_ITS | Clinical Summary ---
Author Organization [facility] Address [address] [place] [address] Care Team Providers Care Parking Lot Laborer Name Role Phone Agnieszka Mora MD Primary Care Provider [phone] Encounters Date Type Department Care Team Description 09/18/2024 12:00 PM EST - 09/18/2024 11:59 PM EST Hospital Encounter [facility] Nuclear Medicine [address] [place] [phone] Discharge Disposition: Home or Self Care 09/18/2024 8:39 AM EST - 09/18/2024 11:59 PM EST Hospital Encounter [facility] Nuclear Medicine [address] [place] [phone] Age-related osteoporosis with current pathological fracture, vertebra(e), initial encounter for fracture ([facility]) Discharge Disposition: Home or Self Care from Last 3 Months Social History Tobacco Use Types Packs/Day Years Used Date Smoking Tobacco: Never Assessed Sex and Gender Information Value Date Recorded Sex Assigned at Female 09/17/2024 3:23 PM EST Gender Identity Female 09/17/2024 3:23 PM EST Sexual Orientation Straight 09/17/2024 3: 23 PM EST Job Start Date Occupation Industry Not on file Not on file Not on file Plan of Treatment Health Maintenance Due Date Last Done Comments Zoster Vaccines (1 of 2) 1994 RSV Immunization Patients 60+ Years Old (1 - 1-dose 75+ series) 2019 COVID-19 Vaccine ( season) 2024 09/06/2021, 11/29/2020, 11/01/2020 Cholesterol Screening (Lipid Panel) 08/08/2024 Depression Screening 08/08/2024 Falls Risk Assessment 08/08/2024 Osteoporosis Screening (Bone Density Screening) 08/08/2024 Social Influencers of Health Screening 08/08/2024 Hypertension/CHF/CAD Annual BMP Blood Test 09/18/2024 DTaP,Tdap,and Td Vaccines (2 - Td or Tdap) 11/13/2033 11/13/2023 Pneumococcal Vaccine: 65+ Years Completed 10/15/2018, 06/19/2018, 05/22/2016 Influenza Vaccine Completed 07/04/2024, , 07/12/2022, Additional history exists HIB Vaccines Aged Out No longer eligi ble based on patient's age to complete this topic HPV Vaccines Aged Out No longer eligi ble based on patient's age to complete this topic Hepatitis A Vaccines Aged Out No long er eligible based on patient's age to complete this topic Hepatitis B Vaccines Aged Out No long er eligible based on patient's age to complete this topic IPV Vaccines Aged Out No longer eligi ble based on patient's age to complete this topic MMR Vaccines Aged Out No longer eligi ble based on patient's age to complete this topic Meningococcal ACWY Vaccine Aged Out N o longer eligible based on patient's age to complete this topic RSV Immunization Patients Under 20 months Aged Out No longer eligible based on patient's age to complete this topic Varicella Vaccines Aged Out No longer eligible based on patient's age to complete this topic Procedures Procedure Name Priority Date/Time Associated Diagnosis Comments NM BONE/JOINT SCAN SPECT Routine 09/18/2024 12:46 PM EST Age-related osteoporosis with current pathological fracture, vertebra(e), initial encounter for fracture ([facility]) from Last 3 Months Results * NM Bone/Joint Scan Spect (09/18/2024 12:46 PM EST) Anatomical Region Laterality Modality Nuclear Medicine 09/18/2024 2:43 PM EST Impressions 09/18/2024 3:22 PM EST Moderate isotope activity in the L3 vertebra corresponds to recent kyphoplasty for compression fracture. Mild isotope activity right L4-5 facet joint corresponding to hypertrophic changes with spurring of right L4-facet joint on CT. Nonspecific mild inferior endplate activity L5 vertebra without significant loss of height on CT. However there is mild degenerative disc changes at the L5-S1 disc level with right lateral spondylosis. -------- FINAL REPORT -------- Dictated By: Les Pandya Dictated Date: 09/18/2024 14:43 ET Assigned Physician: Les Pandya Reviewed and Electronically Signed By: Les Pandya Signed Date: 09/18/2024 15:22 ET Workstation ID: [id number] Transcribed By: Self Edit Transcribed Date: 09/18/2024 14:43 ET Narrative 09/18/2024 3:22 PM EST EXAMINATION: Nuclear medicine bone SPECT study. CLINICAL INDICATION: Post kyphoplasty L3 fracture. Complains of low back pain. COMPARISON: MRI lumbar spine 08/01/2024. TECHNIQUE: Following intravenous administration of 25 mCi of technetium 99m MDP in left antecubital vein, thoracolumbar spine imaging was obtained approximately 3 hours later. 3-D SPECT study was performed subsequently. FINDINGS: On planar thoracic imaging there is moderate activity seen in L3 vertebra corresponding to old L3 compression fracture and recent kyphoplasty procedure. No abnormal size of activity seen in the pedicles, lamina or adjacent facet joints There is mild isotope activity seen along the right L4-L5 facet joint. There is moderate hypertrophic changes of right foot L4-facet joint on CT. There is minimal insignificant isotope activity along the inferior endplate of L5 vertebra. This is most likely corresponding the L5-S1 disc osteophytosis. No abnormal isotope activity seen in the L1 or L5 superior endplate as was noted on the outside x-ray. Procedure Note Les Pandya MD - 09/18/2024 EXAMINATION: Nuclear medicine bone SPECT study. CLINICAL INDICATION: Post kyphoplasty L3 fracture. Complains of low backpain. COMPARISON: MRI lumbar spine 08/01/2024. TECHNIQUE: Following intravenous administration of 25 mCi of [id number] MDP in left antecubital vein, thoracolumbar spine imaging was obtainedapproximately 3 hours later. 3-D SPECT study was performed subsequently. FINDINGS: On planar thoracic imaging there is moderate activity seen in [id number] corresponding to old L3 compression fracture and recentkyphoplasty procedure. No abnormal size of activity seen in the pedicles,lamina or adjacent facet joints There is mild isotope activity seen along the right L4-L5 facet joint.There is moderate hypertrophic changes of right foot L4-facet joint onCT. There is minimal insignificant isotope activity along the inferiorendplate of L5 vertebra. This is most likely corresponding the L5-S1 discosteophytosis. No abnormal isotope activity seen in the L1 or L5 superior endplate as wasnoted on the outside x-ray. IMPRESSION: Moderate isotope activity in the L3 vertebra corresponds to recentkyphoplasty for compression fracture. Mild isotope activity right L4-5 facet joint corresponding to hypertrophicchanges with spurring of right L4-facet joint on CT. Nonspecific mild inferior endplate activity L5 vertebra withoutsignificant loss of height on CT. However there is mild degenerative discchanges at the L5-S1 disc level with right lateral spondylosis. -------- FINAL REPORT -------- Dictated By: Les Pandya Dictated Date: 09/18/2024 14:43 ET Assigned Physician: Les Pandya Reviewed and Electronically Signed By: Les Pandya Signed Date: 09/18/2024 15:22 ET Workstation ID: [id number] Transcribed By: Self Edit Transcribed Date: 09/18/2024 14:43 ET Fausto Mcdermott MD IMG NM PROCEDURES from Last 3 Months Care Teams Parking Lot Laborer Relationship Specialty Start Date End Date Agnieszka Mora MD [address] [place] [address] [address] [facility] [place] [address] PCP - General Internal Medicine 09/17/24
--- OUTSIDE RECORDS SUMMARY | 2024-11-08 07:17 | XMS_ITS ---
Author Name [facility] Organization Unknown History of Medication Use Medication Directions Dispensed Refills Start Date End Date Stat aspirin (GOMEZ ASPIRIN) 325 MG tablet Take 1 tablet (325 mg total) by mouth 2 (two) times a day with breakfast and dinner. TAKE AFTER SURGERY TO PREVENT BLOOD CLOTS 06/21/2023 active Problems Problem Status Onset Date Problem Type Date of Resoluti on Source Hammer toe of left foot active EncounterDiagnosisAct CCT
--- OUTSIDE RECORDS SUMMARY | 2024-11-08 07:17 | XMS_ITS | Encounter Summary ---
Author Organization [facility] Address [address] [place] [id number] Care Team Providers Care Parish Visitor Name Role Phone Agnieszka Mora MD Primary Care Provider Encounter Details Date Type Department Care Team (Late st Contact Info) Description 06/01/2023 Scanned Document [facility] [address] [phone] Adrian Moura MD [address] [place] [address] Social History Tobacco Use Types Packs/Day Years Used Date Smoking Tobacco: Never Assessed Sex and Gender Information Value Date Recorded Sex Assigned at Female 04/23/2023 2:49 PM EDT Gender Identity Female 04/23/2023 2:49 PM EDT Sexual Orientation Other 04/23/2023 2: 49 PM EDT documented as of this encounter Plan of Treatment Not on file documented as of this encounter Visit Diagnoses Not on filedocumented in this encounter Care Teams Parish Visitor Relationship Specialty Start Date End Date Agnieszka Mora MD [address] [place] [address] [place] [address] PCP - General Internal Medicine 05/29/23 documented as of this encounter
--- OUTSIDE RECORDS SUMMARY | 2024-11-08 07:17 | XMS_ITS | Encounter Summary ---
Author Organization [facility] Address [address] [place] [id number] Care Team Providers Care Rn Chemical Dependency Name Role Phone Agnieszka Mora MD Primary Care Provider [phone] Encounter Details Date Type Department Care Team ([facility] st Contact Info) Description 06/25/2023 Scanned Document [facility] [place] [address] Adrian Moura MD [address] [place] [address] Social History Tobacco Use Types Packs/Day Years [...] on filedocumented in this encounter Care Teams Rn Chemical Dependency Relationship Specialty Start Date End Date Agnieszka Mora MD [address] [place] [address] [place] [id number] PCP - General Internal Medicine 05/29/23 documented as of this encounter
--- OUTSIDE RECORDS SUMMARY | 2024-11-08 07:17 | XMS_ITS | Clinical Summary ---
Author Organization [facility] Address [address] [place] [address] Care Team Providers Care Oil And Gas Field Technician Name Role Phone Agnieszka Mora MD Primary Care Provider [phone] Allergies Active Allergy Reactions Criticality Noted Date Comments Codeine Other (See Comments) 05/29/2023 Oxycodone Other (See Comments) 05/29/2023 Ketorolac Tromethamine Other (See Comments) 11/2022 Bronchospasm Medications Medication Sig Dispensed Refills Start Date End Date Status acetaminophen (TYLENOL) 500 MG tabletIndications:H ammer toe of left foot Take 2 tablets (1,000 mg total) by mouth 3 (three) times a day with meals. 100 tablet 1 06/21/2023 Active aspirin (GOMEZ ASPIRIN) 325 MG tabletIndications:H ammer toe of left foot Take 1 tablet (325 mg total) by mouth 2 (two) times a day with breakfast and dinner. TAKE AFTER SURGERY TO PREVENT BLOOD CLOTS 60 tablet 06/21/2023 Active Vitamin D3 (CHOLECALCIFEROL) 50 MCG (1999 UT) tabletIndications:H ammer toe of left foot Take 2 tablets (4,000 Units total) by mouth daily. 30 tablet 3 06/21/2023 Active calcium carbonate (Calcium 600) 600 MG tabletIndications:H ammer toe of left foot Take 1 tablet (600 mg total) by mouth 2 (two) times a day with meals. 60 tablet 3 06/21/2023 Active gabapentin (NEURONTIN) 100 MG capsuleIndications: Hammer toe of left foot Start taking 1 pill at night after surgery, may increase dose to 3 capsules at night as needed for post operative pain, swelling, numbness and tingling. 90 capsule 1 06/21/2023 Active Social History Tobacco Use Types Packs/Day Years Used Date Smoking Tobacco: Never Assessed Sex and Gender Information Value Date Recorded Sex Assigned at Female 04/23/2023 2:49 PM EDT Gender Identity Female 04/23/2023 2:49 PM EDT Sexual Orientation Other 04/23/2023 2: 49 PM EDT Plan of Treatment Health Maintenance Due Date Last Done Comments DTaP/Tdap/Td Vaccines (1 - Tdap) 1963 Pneumococcal Vaccines 50+ (1 of 1 - PCV) 1994 Zoster (Shingles) Vaccine (1 of 2) 1994 DXA Bone Density (Females,Ag es 65 and older) 2009 RSV Vaccine 60 years and old er and Patients (1 - 1-dose 75+ series) 2019 Influenza Vaccine 05/01/2024 COVID-19 Vaccine ( - 2023-2 5 season) 2024 Hepatitis B Vaccines Aged Out No long er eligible based on patient's age to complete this topic Care Teams Oil And Gas Field Technician Relationship Specialty Start Date End Date Agnieszka Mora MD [address] [place] [address] [place] [address] PCP - General Internal Medicine 05/29/23
[2024-11-08 07:42] LABS: MANUAL DIFF FLAG NO
[2024-11-08 08:26] LABS: Basophils Absolute Auto 0.1 X10*3/uL (0.0-0.2); Eosinophils Absolute Auto 0.1 X10*3/uL (0.0-0.4); Eosinophils Percent Auto 2.4 % (0-4); Hematocrit 39.9 % (37.0-47.0); Hemoglobin 13.2 g/dl (12.0-16.0); Imm Gran Abs Auto 0.02 X10*3/uL (0.00-0.03); Imm Gran Pct Auto 0.4 % (0.0-0.4); Lymphocytes Absolute Auto 1.2 X10*3/uL (1.2-4.9); Lymphocytes Percent Auto 24.1 % (20-40); Mean Corpuscular HGB Conc 33.1 g/dl (31.0-35.0); Mean Corpuscular Hemoglobin 30.3 pg (27.0-33.0); Mean Corpuscular Volume 91.5 fL (80.0-98.0); Mean Platelet Volume 9.7 fL (9.4-12.3); Monocytes Absolute Auto 0.4 X10*3/uL (0.1-1.2); Monocytes Percent Auto 8.8 % (2-11); Neutrophils Absolute Auto 3.1 x10*3/uL (2.0-8.3); Neutrophils Percent Auto 63.3 % (45-73); Platelet Count 256 X10*3/uL (160-400); Red Blood Count 4.36 X10*6/uL (4.20-5.50); Red Cell Distribution Width 13.8 % (11.0-16.0); White Blood Count 4.9 X10*3/uL (4.8-10.8)
[2024-11-08 09:09] LABS: Alanine Aminotransferase 17 U/L (0-31); Albumin Level 3.9 g/dL (3.5-5.0); Alkaline Phosphatase 88 U/L (39-117); Anion Gap 11 (12-20); Aspartate Amino Transferase 24 U/L (5-31); Bilirubin Total 0.5 mg/dL (0.0-1.0); Blood Urea Nitrogen 23 mg/dL (9-16); Calcium 8.9 mg/dL (8.4-10.2); Carbon Dioxide 24 mmol/L (22-29); Chloride 111 mmol/L (96-108); Cholesterol 175 mg/dL (<200); Estimated Glomerular Filt Rate > 60; Glucose Random 88 mg/dL (60-115); HDL Cholesterol 57 mg/dL (>40); LDL Cholesterol Calculated 96 mg/dL (<100); Potassium 3.9 mmol/L (3.3-5.1); Sodium 142 mmol/L (135-145); Total Protein 6.5 g/dL (6.5-8.0); Triglycerides 113 mg/dL (<150)
[2024-11-08 09:24] LABS: Free T4 (Free Thyroxine) 1.02 ng/dL (0.71-1.85); Thyroid Stimulating Hormone 1.72 uIU/mL (0.32-4.0); Vitamin D 25-OH Total 42.6 ng/mL (>30)
[2024-11-08 09:29] LABS: Folate 13.6 ng/mL (> or = 4.0); Vitamin B12 591 pg/mL (200-900)
[2024-11-08 12:56] LABS: Erythrocyte Sedimentation Rate 9 MM/HR (0-20)
== END 2024-11-08 07:16 | disposition home or self-care (01) ==
LOC: HO.LAB 07:15
PROVIDERS: PCP Internal Medicine; Visit Provider Internal Medicine
DX: E78.00 Pure hypercholesterolemia, unspecified (principal)
CPT/HCPCS: 36415; 80053; 80061; 82306; 82607; 82746; 84439; 84443; 85025; 85652

== ENCOUNTER 2024-11-11 08:56 | Outpatient (REF) | payer MEDICARE, SELFPAY | END 2024-11-11 08:57 | disposition home or self-care (01) | LOC: HO.MAMMO 08:56 | PROVIDERS: PCP Internal Medicine; Visit Provider Internal Medicine | DX: Z12.31 Encounter for screening mammogram for malignant neoplasm of breast (principal) | CPT/HCPCS: 77063; 77067 ==

== ENCOUNTER → 2024-11-11 09:15 | Outpatient (BNV) | payer MEDICARE, SELFPAY | PROVIDERS: PCP Internal Medicine; Visit Provider Internal Medicine | DX: Z12.31 Encounter for screening mammogram for malignant neoplasm of breast (principal) | CPT/HCPCS: 77063; 77067 ==

== ENCOUNTER 2024-11-18 12:48 | Outpatient (AMB) | payer MEDICARE, SELFPAY ==
--- NOTE | 2024-11-18 12:49 | A.OFFPC_ITS ---
Vital Signs 11/18/24 12:50 Height 5 ft Weight 143 lb BMI 27.9 BP 152/92 H Blood Pressure Location Lt brachial Position Sitting Pulse 111 H Pulse Source Pulse Oximeter Pulse Oximetry (%) 98 Oxygen Delivery Method Room Air Intake Visit Reasons: Annual Exam Allergies codeine [CODEINE] Allergy (Severe, Verified 11/18/24 12:50) BRONCHOSPASMS oxycodone [OXYCODONE] Allergy (Severe, Verified 11/18/24 12:50) BRONCHOSPASMS ketorolac [From Toradol] Allergy (Verified 11/18/24 12:50) Unknown lisinopril Adverse Reaction (Intermediate, Verified 11/18/24 12:50) Headache Medication List - Last Reconciled 11/18/24 by Agnieszka Mora MD ascorbic acid (vitamin C) 1 g PO DAILY aspirin (Adult Aspirin Regimen) 81 mg PO DAILY calcium carbonate-vitamin D3 600 mg-10 mcg (400 unit) (Calcium with Vitamin D) 1 tab PO DAILY cetirizine 10 mg PO DAILY PRN 30 days docusate sodium (Colace) 100 mg PO BID gabapentin 100 mg PO DAILY PRN lactobacillus combination no.8 (Adult Probiotic) 3,000 mmu cells PO DAILY losartan-hydrochlorothiazide 50-12.5 mg 1 tab PO DAILY multivitamin 1 tab PO DAILY omega-3 fatty acids 500 mg PO DAILY psyllium husk (Metamucil) 1 tbsp PO BID simvastatin 10 mg PO BEDTIME Tobacco use date assessed: 11/18/24 Fall risk assessment: No Falls in past year Last assessed Fall Risk: 11/18/24 Dental Screening Dental Screen Date: 11/18/24 Did you have a dental visit in the last 12 months?: Yes Did you have a dental problem in the last 6 months where you did not have access to dental care?: No Was dental information given to patient?: Patient has dentist HPI Annual Exam HPI Details The patient is an 79-year-old female presenting with a recent lumbar spine compression fracture at L3. The fracture was identified following a mechanical injury while attempting to lift a sofa bed, resulting in severe acute pain. A kyphoplasty procedure was subsequently performed for the fracture. She reports persistent back pain for six and a half months post-procedure and daily pain management with various medications including gabapentin as needed. Her history includes essential hypertension, managed with losartan 50 mg and hydrochlorothiazide 12.5 mg daily, and hypercholesterolemia, with simvastatin 10 mg for management. She targets an LDL goal of less than 130 mg/dL. The patient has historical medical conditions of fatty liver and ulnar nodule noted in 2021, as well as generalized anxiety disorder. She experiences hip osteoarthritis, realizing discomfort but not related to the current visit. She tested positive for COVID-19 on October 01 and experienced persistent symptoms, including a cough. [id number], she noted transient brain fog and lightheadedness but no ongoing dizziness, nausea, or vomiting. - Mammogram results pending from 2023. - Colonoscopy completed in 2013 with no current necessity for a repeat procedure. - Bone density test planned for August 2024. - Annual eye examination scheduled in [facility]. - Regular dental visits every three faye hs required before initiating Fosamax for osteoporosis management. - Exercises regularly and active in [employer] activities. - Occasionally consumes red wine without excess. - Reports having a healthy diet but isela cated variable water intake. - Cardiovascular: Denies chest pain, hea rtburn. - Constitutional: Reports persistent elio k pain. - Ear, Nose, Throat: Denies hearing prob lems despite 's recommendation for hearing aids. - Respiratory: Occasional cough followin g COVID-19. - Gastrointestinal: Reports normal bowel movements, denies gastrointestinal issues. - Genitourinary: Denies urinary problems . - Neurological: Experience of transient brain fog and lightheadedness - Labs: Blood work from November 08, 2023 , showing normal electrolytes, renal function, blood sugar, liver function, and lipid panel with cholesterol LDL at 96 mg/dL. - Tests: Pending mammogram result as of November 2023. - Procedures: Bone density scan results planned; consistent osteopenia noted with subsequent changes due to lumbar fracture indicating osteoporosis. [facility] Medical History (Updated 11/18/24 @ 13:38 by Agnieszka Mora MD) LFT elevation Sinusitis Bronchitis Alopecia Diverticular disease Hypercholesterolemia Hypertension Surgical History History of surgery H/O basal cell carcinoma excision History of foot surgery History of thumb surgery History of appendectomy History of tonsillectomy History of total abdominal hysterectomy and bilateral salpingo-oophorectomy History of cholecystectomy Family History Father Lung cancer Mother Hypertension Stroke Paternal Aunt Breast cancer Brother Prostate cancer Social History (Updated 11/18/24 @ 13:14 by Agnieszka Mora MD) Housing: House Alcohol intake: current Comment: once a week 4 oz wine, 1-2 x a week 1 drink 11/2024 Patient Tobacco Use Status: Former Tobacco user Tobacco use type: Cigarette Years Smoked: quit 1961 2months of smoking only e-Cigarette/Vaping Use: Never Used Second Hand Smoke Exposure: No service: No Current occupational status: retired Cognitive needs: No Hearing needs: No Vision needs: Yes Questionnaire PHQ-9 Over the last 2 weeks, how often have you been bothered by any of the following problems? 1. Little interest or pleasure in doing things: not at all 2. Feeling down, depressed, or hopeless: not at all 3. Trouble falling or staying asleep, or sleeping too much: not at all 4. Feeling tired or having little energy: not at all 5. Poor appetite or overeating: not at all 6. Feeling bad about yourself - or that you are a failure or have let yourself or your family down: not at all 7. Trouble concentrating on things, such as reading the newspaper or watching television: not at all 8. Moving or speaking so slowly that other people could have noticed. Or the opposite - being so fidgety or restless that you have been moving around a lot more than usual: not at all 9. Thoughts that you would be better off or of hurting yourself in some way: not at all Total score: 0 Depression Screening Interpretation: Negative Depression Screening Done: Yes 25772 - PHQ-9 Billing: Yes Source: Developed by Drs. Venkata Boo, Donna Shaw, Maulik Martinez and colleagues, with an educational tico from [employer]. Thrive Questionnaire Date Thrive assessed: 11/17/24 I am a: Patient What is your living situation today?: I have a steady place to live Within the past 12 months, did the food you bought not last and you didn't have the money to get more?: Never true Within the past 12 months, did you worry whether your food would run out before you got money to buy more?: Never true Do you have trouble paying for medicines?: No Do you have trouble getting transportation to medical appointments?: No Do you have trouble paying your heating and electricity bill?: No Do you have trouble taking care of your child, family member or friend?: No Do you have trouble with day-to-day activities such as bathing, preparing meals, shopping, managing finances, etc.?: No Are you currently unemployed and looking for a job?: No Are you interested in more education?: No Currently or been in a relationship where the following occur: No concerns reported THRIVE Score: 0 AUDIT C Alcohol Use Questionnaire (AUDIT-C) 1. How often do you have a drink containing alcohol?: 2-3 times a week 2. How many drinks containing alcohol do you have on a typical day when you are drinking?: 1 or 2 3. How often do you have six or more drinks on one occasion?: Never Total Score: 3 CARLOS-7 AMB Questionnaire CARLOS-7 Date CARLOS - 7 assessed: 11/18/24 Feeling nervous, anxious, or on edge: 0 = Not at all Not being able to stop or control worryin = Not at all Worrying too much about different things: 0 = Not at all Trouble relaxin = Not at all Being so restless that it is hard to sit still: 0 = Not at all Becoming easily annoyed or irritable: 0 = Not at all Feeling afraid as if something awful might happen: 0 = Not at all Total CARLOS-7 score (0-4 normal; 5-9 mild; 10-14 moderate; 15-21 severe): 0 Source: Developed by Drs. Venkata Boo, Donna Shaw, Maulik Martinez and colleagues, with an educational tico from [employer]. CARLOS-7 Assessment Billing CARLOS-7 Assessment Tool: CARLOS-7 Assessment 83830 Review of Systems Const Denies poor appetite and Denies weakness Eyes Denies no additional complaints ENT Reports Normal hearing present, Denies dizziness, Denies nasal congestion, Denies tinnitus and Denies sore throat Card Denies chest pain, Denies syncope, Denies rapid heart rate and Denies dyspnea Resp Denies cough and Denies dyspnea GI Denies change in stool character, Reports constipation, Denies diarrhea, Denies nausea and Denies vomiting Denies urinary frequency, Denies difficulty voiding and Denies dysuria Neuro Reports Normal hearing present, Denies confusion, Denies dizziness, Denies syncope and Denies weakness Psych Denies confusion Physical exam (Primary Care) Vital Signs: Last Vital Signs Pulse 111 H 11/18/24 12:50 BP 152/92 H 11/18/24 12:50 Pulse Ox 98 11/18/24 12:50 Oxygen Delivery Method Room Air 11/18/24 12:50 BMI result Body Mass Index 27.9 Tobacco/Smoking Status: Tobacco use Status Tobacco use date assessed 11/18/24 11/18/24 13:00 Patient Tobacco Use Status Former Tobacco user 11/18/24 13:14 Tobacco use type Cigarette 11/18/24 13:14 e-Cigarette/Vaping Use Never Used 11/18/24 13:14 PHQ-9: PHQ-9 Score PHQ-9: Total score 0 11/18/24 13:09 Depression Screening Interpretation: Negative Thrive Assessment: Date of Thrive Assessment Date Thrive assessed 11/17/24 11/18/24 13:00 Currently or been in a relationship where the following occur: No concerns reported Const General: No confusion Orientation/consciousness: No confusion HENMT Head: Yes normocephalic Ears: external ears normal and TM's normal bilaterally Face and sinus: Yes normal facial exam Mouth: moist mucous membranes Throat: Yes tonsils normal Eyes Conjunctivae: conjunctivae normal Pupils: Equal, round and reactive pupils present and Pupil accommodation reflex normal Direct Ophthalmoscopy: normal light reflex Neck Neck: No lymphadenopathy Thyroid: Thyroid normal Chest Chest palpation & inspection: normal inspection of the chest Resp Effort & Inspection: normal respiratory effort and no audible wheezes Auscultation: clear to auscultation bilaterally, no crackles, no wheezes and lung sounds not diminished Cardio Rate: regular rate Rhythm: regular rhythm Peripheral pulses: radial pulses present and dorsalis pedis present GI Other: guaiac negative Palpation (GI): no masses Auscultation: normal bowel sounds and normoactive bowel sounds Rectal Exam - Female: deferred Skin General skin exam: no rashes or lesions noted Rashes: no rashes Neuro General: No confusion Cranial nerves: Yes Equal, round and reactive pupils present and Yes Normal hearing present Cognition (Neuro): normal cognition Gait exam (Neuro): Normal gait present Motor exam (neuro): 5/5 motor strength present throughout Deep tendon reflexes (DTR's): Right brachioradialis reflex intensity grade: 2+, Left brachioradialis reflex intensity grade: 2+, Right patellar reflex intensity grade: 2+ and Left patellar reflex intensity grade: 2+ Extrem General: No edema Coding Level of Care Code Est Pt Prev Care >65y(75140) Diagnoses Annual physical exam Z00.00 Essential hypertension I10 Hypertension type: essential hypertension Hypercholesterolemia E78.00 Generalized anxiety disorder F41.1 Fracture of lumbar spine S32.009A Hip osteoarthritis M16.9 Pulmonary nodule R91.1 Osteoporosis M81.0 Additional Codes CARLOS-7 Assessment Billing - CARLOS-7 Assessment Tool: CARLOS-7 Assessment 69652 ([id number]) PHQ-9 - 32792 - PHQ-9 Billing: Yes ([id number]) Assessment & Plan Assessment & Plan (1) Annual physical exam: Code(s): Z00.00 - Encounter for general adult medical examination without abnormal findings Category: Medical Plan: Patient is advised to eat healthy, keep well hydrated, keep active and have adequate sleep. (2) Hypertension: Code(s): I10 - Essential (primary) hypertension Category: Medical Qualifiers: Hypertension type: essential hypertension Qualified Code(s): I10 - Essential (primary) hypertension Plan: Continue with blood pressure medication. Decrease salt intake and exercise on losartan hydrochlorothiazide 50/12.5 mg once a day (3) Hypercholesterolemia: Code(s): E78.00 - Pure hypercholesterolemia, unspecified Category: Medical Plan: Avoid fried foods, chicken skin, eggs, butter margarine, pastries and meat. Be it pork or beef they have a lot of cholesterol on simvastatin 10 mg. LDL goal of less than 130 and triglyceride of less than 150 (4) Generalized anxiety disorder: Code(s): F41.1 - Generalized anxiety disorder Category: Medical Plan: Stable (5) Fracture of lumbar spine: Comment: June 2024. Approximate 40% acute/subacute compression deformity of L3 superior endplate, with only 2 mm of retropulsion of bone into the central canal. No resultant central canal stenosis. No evidence of epidural hematoma. 2. Subtle corner fractures of the anterior superior and inferior endplates of L2 without loss of height. 3. Nondisplaced fracture through the right transverse process of L1. 4. Severe degenerative disc changes at L5-S1 with a 3 mm degenerative anterolisthesis, based upon a full thickness left pars defect which appears developmental as opposed to acquired. There is a dysplastic left facet at this level. See above for details. 5. There is no high-grade central canal or lateral recess stenosis at any level. There is significant neural foraminal narrowing at L5-S1 bilaterally. See above. Code(s): S32.009A - Unspecified fracture of unspecified lumbar vertebra, initial encounter for closed fracture Category: Medical Plan: Keep active (6) Hip osteoarthritis: Code(s): M16.9 - Osteoarthritis of hip, unspecified Category: Medical Plan: Keep active and follows up with ortho (7) Pulmonary nodule: Comment: 07/2022 Right upper lobe ground-glass density adjacent to the major fissure and right minor fissure. There are 2 additional ill-defined ground-glass attenuations in the right upper lobe. The left lung is clear. These are most likely post inflammatory changes. No solid lesions seen to corroborate findings seen on chest x-ray. 2. No abnormal mediastinal or axillary lymph nodes seen. 3. Moderate-sized hiatal hernia. 4. Two small hypodensities in the right hepatic lobe. These are too small to characterize but likely cysts. October 2022 New right upper lobe 5 mm nodule, endobronchial in appearance may reflect mucoid impaction. Additional new sub-3 mm nodules in the right middle lobe, several of which are endobronchial in location, may reflect new foci of mucoid impaction. Fleischner guidelines were followed. According to the UPDATED 2017 Fleischner Society recommendations, the advised followup imaging for a single part solid nodule measuring 6 mm or greater is: CT at 3-6 months to confirm persistence. If unchanged and solid component remains <6 mm, annual CT should be performed for 5 years. March 2023 stable March 2024 stable Code(s): R91.1 - Solitary pulmonary nodule Category: Medical (8) Osteoporosis: Code(s): M81.0 - Age-related osteoporosis without current pathological fracture Category: Medical Plan - Manage osteoporosis with introduction of Fosamax after dental clearance; discussion of administration instructions provided. - Continue current medications including losartan and hydrochlorothiazide for hypertension. - Maintain gabapentin at 100 mg as needed for back pain. - Follow-up on pending mammogram results. - 90-day supply of losartan to be prescribed for hypertension, monitoring home blood pressure routinely. - Plan further CAT scan for March to monitor lung status due to past COVID-19 infection. During our discussion, I emphasized the necessity of starting Fosamax for her osteoporosis, given the spinal fracture, while ensuring dental evaluation first. I reviewed the risks of bone fragility and the rationale for treatment, including potential dental implications. I explained the importance of her liver function and bloodwork results, which were within normal ranges, affirming her current management strategies for hypercholesterolemia and hypertension. We agreed on the continuation of her current medication regimen. Additionally, numerous lifestyle recommendations included increased hydration and regular physical activity. We discussed the implications of recent COVID-19 infection, assuring the stability of respiratory functions as evaluated by the CAT scan scheduled for later this year. - Begin Fosamax treatment after discussing dental clearance with your dentist. - Continue taking all current medications as prescribed. - Increase daily water intake to at least 64 ounces. - Engage in regular physical activity. - Follow up in three months for routine evaluation and review of pending mammogram results. - Perform home blood pressure checks regularly and record readings for next visit. - Avoid prolonged bed rest to aid recovery post-kyphoplasty. - Seek medical attention if experiencing increased pain, unexplained dizziness, or significant changes in health status. Orders: Orders CT chest wo con - High Res 4 Months R91.1 - Solitary pulmonary nodule Medications: New alendronate (Fosamax) 70 mg PO QWEEK 5 tabs 0RF 30 days M81.0 - Age-related osteoporosis without current pathological fracture Refilled losartan-hydrochlorothiazide 50-12.5 mg 1 tab PO DAILY 90 tabs 3RF I10 - Essential (primary) hypertension
[2024-11-18 12:50] VITALS: BP 152/92; PULSE 111; O2SAT 98; BMI 27.9
--- OUTSIDE RECORDS SUMMARY | 2024-11-18 13:38 | XMS_ITS | Clinical Summary ---
Author Organization [facility] Address [address] [place] [address] Care Team Providers Care Event Lighting Specialist Name Role Phone Agnieszka Mora MD Primary Care Provider [phone] Allergies Active Allergy Reactions Criticality Noted Date [...] age to complete this topic Care Teams Event Lighting Specialist Relationship Specialty Start Date End Date Agnieszka Mora MD [address] [place] [address] [place] [address] PCP - General Internal Medicine 05/29/23
--- OUTSIDE RECORDS SUMMARY | 2024-11-18 13:38 | XMS_ITS | Clinical Summary ---
Author Organization [facility] Address [address] [place] [address] Care Team Providers Care Program Advisor Name Role Phone Agnieszka Mora MD Primary Care Provider [phone] Encounters Date Type Department Care Team Description 09/18/2024 12:00 PM EST - 09/18/2024 11:59 PM EST Hospital Encounter [facility] Nuclear Medicine [address] [place] [phone] Discharge Disposition: Home or Self Care 09/18/2024 8:39 AM EST - 09/18/2024 11:59 PM EST Hospital Encounter [facility] Nuclear Medicine [address] [place] [phone] Age-related osteoporosis with current pathological fracture, vertebra(e), initial encounter for fracture ([facility]) Discharge Disposition: Home or Self Care from Last 3 Months Social History Tobacco Use Types Packs/Day Years Used Date Smoking Tobacco: Never Assessed Comments Unknown Sex and Gender Information Value Date Recorded Sex Assigned at Female 09/17/2024 3:23 PM EST Legal Sex Female 6:25 PM EDT Gender Identity Female 09/17/2024 3:23 PM EST Sexual Orientation Straight 09/17/2024 3: 23 PM EST Plan of Treatment Health Maintenance Due Date [...] Td or Tdap) 11/13/2033 11/13/2023 Pneumococcal Vaccine: 50+ Years Completed 10/15/2018, 06/19/2018, 05/22/2016 Influenza Vaccine [...] patient's age to complete this topic Meningococcal B Vacine Aged Out No lo nger eligible based on patient's age to complete [...] pathological fracture, vertebra(e), initial encounter for fracture ([facility]) from Last 3 Months Results * NM [...] Signed Date: 09/18/2024 15:22 ET Workstation ID: [id number] Transcribed By: Self Edit Transcribed Date: 09/18/2024 [...] Following intravenous administration of 25 mCi of [id number] MDP in left antecubital vein, thoracolumbar spine imaging was obtainedapproximately 3 hours later. 3-D SPECT study was performed subsequently. FINDINGS: On planar thoracic imaging there is moderate activity seen in [id number] corresponding to old L3 compression fracture and [...] Signed Date: 09/18/2024 15:22 ET Workstation ID: [id number] Transcribed By: Self Edit Transcribed Date: 09/18/2024 14:43 ET Fausto Mcdermott MD IM NM PROCEDURES Final Result from Last 3 Months Insurance [facility] MEDICAID ADVANTAGE Care Teams Program Advisor Relationship Specialty Start Date End Date Po, Lorenver, MD [address] [place] [address] [address] [facility] [place] [address] PCP - General Internal Medicine 09/17/24
--- OUTSIDE RECORDS SUMMARY | 2024-11-18 13:38 | XMS_ITS | Encounter Summary ---
Author Organization [facility] Address [address] [place] [address] Care Team Providers Care Psychologist Name Role Phone Agnieszka Mora MD Primary Care Provider [phone] Encounter Details Date Type Department Care Team (Late st Contact Info) Description 06/01/2023 Scanned Document [facility] [address] [phone] Adrian Moura MD [address] [place] [address] Social History Tobacco Use Types Packs/Day Years [...] on filedocumented in this encounter Care Teams Psychologist Relationship Specialty Start Date End Date Agnieszka Mora MD [address] [place] [address] [place] [address] PCP - General Internal Medicine 05/29/23 documented as of this encounter
--- OUTSIDE RECORDS SUMMARY | 2024-11-18 13:38 | XMS_ITS | Encounter Summary ---
Author Organization [facility] Address [address] [place] [address] Care Team Providers Care Stair Builder Name Role Phone Agnieszka Mora MD Primary Care Provider [phone] Encounter Details Date Type Department Care Team ([facility] st Contact Info) Description 06/25/2023 Scanned Document [facility] [place] [address] Adrian Moura MD [address] [place] [address] Social History Tobacco Use Types Packs/Day Years [...] on filedocumented in this encounter Care Teams Stair Builder Relationship Specialty Start Date End Date Agnieszka Mora MD [address] [place] [address] [place] [address] PCP - General Internal Medicine 05/29/23 documented as of this encounter
== END 2024-11-18 13:51 | disposition home or self-care (01) ==
PROVIDERS: PCP Internal Medicine; Visit Provider Internal Medicine
DX: Z00.00 Encounter for general adult medical examination without abnormal findings (principal); I10 Essential (primary) hypertension; E78.00 Pure hypercholesterolemia, unspecified; F41.1 Generalized anxiety disorder; S32.009A Unspecified fracture of unspecified lumbar vertebra, initial encounter for closed fracture; M16.9 Osteoarthritis of hip, unspecified; R91.1 Solitary pulmonary nodule; M81.0 Age-related osteoporosis without current pathological fracture

== ENCOUNTER → 2024-11-18 12:48 | Outpatient (BNVA) | payer MEDICARE, SELFPAY | PROVIDERS: PCP Internal Medicine; Visit Provider Internal Medicine | DX: Z00.00 Encounter for general adult medical examination without abnormal findings (principal); I10 Essential (primary) hypertension; E78.00 Pure hypercholesterolemia, unspecified; F41.1 Generalized anxiety disorder; S32.009D Unspecified fracture of unspecified lumbar vertebra, subsequent encounter for fracture with routine healing; M16.9 Osteoarthritis of hip, unspecified; R91.1 Solitary pulmonary nodule; M81.0 Age-related osteoporosis without current pathological fracture | CPT/HCPCS: 96127; 99397 ==

== ENCOUNTER 2025-02-16 13:03 | Outpatient (AMB) | payer MEDICARE, SELFPAY ==
--- OUTSIDE RECORDS SUMMARY | 2025-02-16 13:10 | XMS_ITS | Encounter Summary ---
Author Organization [facility] Address [address] [place] [address] Care Team Providers Care Senior Ux Developer Name Role Phone Agnieszka Mora MD Primary Care Provider [phone] Encounter Details Date Type Department Care Team ([facility] st Contact Info) Description 06/25/2023 Scanned Document [facility] [place] [address] Ardian Moura MD [address] [place] [address] Social History Tobacco Use Types Packs/Day Years Used Date Smoking Tobacco: Never Assessed Comments Unknown Sex and Gender Information Value Date Recorded Sex Assigned at Female 04/23/2023 2:49 PM EDT Legal Sex Female 6:16 PM EST Gender Identity Female 04/23/2023 2:49 PM EDT Sexual Orientation Other 04/23/2023 2: 49 PM EDT documented as of this encounter Plan of Treatment Not on file documented as of this encounter Visit Diagnoses Not on filedocumented in this encounter Care Teams Senior Ux Developer Relationship Specialty Start Date End Date Agnieszka Mora MD [address] [place] [address] [place] [address] PCP - General Internal Medicine 05/29/23 documented as of this encounter
--- OUTSIDE RECORDS SUMMARY | 2025-02-16 13:10 | XMS_ITS | Encounter Summary ---
Author Organization [facility] Address [address] [place] [address] Care Team Providers Care Coal Shooter Name Role Phone Agnieszka Mora MD Primary Care Provider [phone] Encounter Details Date Type Department Care Team (Late st Contact Info) Description 06/01/2023 Scanned Document [facility] [address] [place] [phone] Adrian Muora MD [address] [place] [address] Social History Tobacco Use Types Packs/Day Years [...] on filedocumented in this encounter Care Teams Coal Shooter Relationship Specialty Start Date End Date Agnieszka Mora MD [address] [place] [address] [place] [address] PCP - General Internal Medicine 05/29/23 documented as of this encounter
--- OUTSIDE RECORDS SUMMARY | 2025-02-16 13:10 | XMS_ITS | Clinical Summary ---
Author Organization [facility] Address [address] [place] [address] Care Team Providers Care Pig Caster Name Role Phone Agnieszka Mora MD Primary Care Provider [phone] Social History Tobacco Use Types Packs/Day Years [...] Vaccines (1 of 2) 1994 RSV Immunization Adult Patients (1 - 1-dose 75+ series) 2019 COVID-19 [...] age to complete this topic Meningococcal B Vaccine Aged Out No l onger eligible based on patient's age to complete this topic RSV Immunization Patients Under 20 months Aged Out No longer eligible based on patient's age to complete this topic Varicella Vaccines Aged Out No longer eligible based on patient's age to complete this topic Insurance [facility] MEDICAID ADVANTAGE Care Teams Pig Caster Relationship Specialty Start Date End Date Agnieszka Mora MD [address] [place] [address] [address] [facility] [place] [address] PCP - General Internal Medicine 09/17/24
--- OUTSIDE RECORDS SUMMARY | 2025-02-16 13:10 | XMS_ITS | Clinical Summary ---
Author Organization [facility] Address [address] [place] [address] Care Team Providers Care Mat Sewer Name Role Phone Agnieszka Mora MD Primary Care Provider Allergies Active Allergy Reactions Criticality Noted Date Comments Codeine Other (See Comments) 05/29/2023 Oxycodone Other (See Comments) 05/29/2023 Ketorolac Tromethamine Other (See Comments) 11/2022 Bronchospasm Medications acetaminophen (TYLENOL) 500 MG tabletIndicatio ns:Hammer toe of left foot Take 2 tablets (1,000 mg total) by mouth 3 (three) times a day with meals. 100 tablet 1 3 Active aspirin (GOMEZ ASPIRIN) 325 MG tabletIndicatio ns:Hammer toe of left foot Take 1 tablet (325 mg total) by mouth 2 (two) times a day with breakfast and dinner. TAKE AFTER SURGERY TO PREVENT BLOOD CLOTS 60 tablet 3 Active Vitamin D3 (CHOLECALCIFERO L) 50 MCG (2000 UT) tabletIndicatio ns:Hammer toe of left foot Take 2 tablets (4,000 Units total) by mouth daily. 30 tablet 3 3 Active calcium carbonate (Calcium 600) 600 MG tabletIndicatio ns:Hammer toe of left foot Take 1 tablet (600 mg total) by mouth 2 (two) times a day with meals. 60 tablet 3 3 Active gabapentin (NEURONTIN) 100 MG capsuleIndicati ons:Hammer toe of left foot Start taking 1 pill at night after surgery, may increase dose to 3 capsules at night as needed for post operative pain, swelling, numbness and tingling. 90 capsule 1 3 Active Social History Tobacco Use Types Packs/Day [...] - 1-dose 75+ series) 2019 COVID-19 Vaccine (2023-2 5 season) 2024 Influenza Vaccine 05/01/2025 Hepatitis B Vaccines Aged Out No long er eligible based on patient's age to complete this topic Insurance [facility] MEDICARE Care Teams Mat Sewer Relationship Specialty Start Date End Date Agnieszka Mora MD [address] [place] [address] [place] [address] PCP - General Internal Medicine 05/29/23
--- NOTE | 2025-02-16 13:13 | A.OFFPC_ITS ---
Vital Signs 02/16/25 13:14 Height 5 ft Weight 145 lb BMI 28.3 BP 136/72 Blood Pressure Location Lt brachial Position Sitting Pulse 79 Pulse Source Pulse Oximeter Pulse Oximetry (%) 96 Oxygen Delivery Method Room Air Intake Visit Reasons: osteoporosis Allergies codeine [CODEINE] Allergy (Severe, Verified 02/16/25 13:14) BRONCHOSPASMS oxycodone [OXYCODONE] Allergy (Severe, Verified 02/16/25 13:14) BRONCHOSPASMS ketorolac [From Toradol] Allergy (Verified 02/16/25 13:14) Unknown lisinopril Adverse Reaction (Intermediate, Verified 02/16/25 13:14) Headache Medication List - Last Reconciled 02/16/25 by Agnieszka Mora MD ascorbic acid (vitamin C) 1 g PO DAILY aspirin (Adult Aspirin Regimen) 81 mg PO DAILY calcium carbonate-vitamin D3 600 mg-10 mcg (400 unit) (Calcium with Vitamin D) 1 tab PO DAILY cetirizine 10 mg PO DAILY PRN 30 days docusate sodium (Colace) 100 mg PO BID lactobacillus combination no.8 (Adult Probiotic) 3,000 mmu cells PO DAILY losartan-hydrochlorothiazide 50-12.5 mg 1 tab PO DAILY multivitamin 1 tab PO DAILY omega-3 fatty acids 500 mg PO DAILY psyllium husk (Metamucil) 1 tbsp PO BID simvastatin 10 mg PO BEDTIME Tobacco use date assessed: 11/18/24 Fall risk assessment: No Falls in past year Last assessed Fall Risk: 02/16/25 Dental Screening Dental Screen Date: 11/18/24 HPI osteoporosis HPI Details 79-year-old overweight female with a his tory of hypertension hypercholesterolemia generalized anxiety disorder history of lumbar fracture osteoporosis coming in for follow-up. Patient has osteoporosis and was started on alendronate but patient declined to take it. Has had dental procedures already but decided not to take it. Discussed about calcium vitamin-D and exercise. Otherwise continuing with the other medications. [facility] Medical History (Updated 02/16/25 @ 13:38 by Agnieszka Mora MD) LFT elevation Sinusitis Bronchitis Alopecia Diverticular disease Hypercholesterolemia Hypertension Surgical History (Reviewed 06/15/23 @ 09:10 by Bernie Nascimento [facility]) History of surgery H/O basal cell carcinoma excision History of foot surgery History of thumb surgery History of appendectomy History of tonsillectomy History of total abdominal hysterectomy and bilateral salpingo-oophorectomy History of cholecystectomy Family History Father Lung cancer Mother Hypertension Stroke Paternal Aunt Breast cancer Brother Prostate cancer Social History (Updated 11/18/24 @ 13:14 by Agnieszka Mora MD) Housing: House Alcohol intake: current Comment: once a week 4 oz wine, 1-2 x a week 1 drink 11/2024 Patient Tobacco Use Status: Former Tobacco user Tobacco use type: Cigarette Years Smoked: quit 1961 2months of smoking only e-Cigarette/Vaping Use: Never Used Second Hand Smoke Exposure: No service: No Current occupational status: retired Cognitive needs: No Hearing needs: No Vision needs: Yes Questionnaire PHQ-9 Over the last 2 weeks, how often have you been bothered by any of the following problems? 1. Little interest or pleasure in doing things: not at all 2. Feeling down, depressed, or hopeless: not at all 3. Trouble falling or staying asleep, or sleeping too much: not at all 4. Feeling tired or having little energy: not at all 5. Poor appetite or overeating: not at all 6. Feeling bad about yourself - or that you are a failure or have let yourself or your family down: not at all 7. Trouble concentrating on things, such as reading the newspaper or watching television: not at all 8. Moving or speaking so slowly that other people could have noticed. Or the opposite - being so fidgety or restless that you have been moving around a lot more than usual: not at all 9. Thoughts that you would be better off or of hurting yourself in some way: not at all Total score: 0 Depression Screening Interpretation: Negative Depression Screening Done: Yes Source: Developed by Drs. Venkata Boo, Donna Shaw, Maulik Martinez and colleagues, with an educational tico from [employer]. Thrive Questionnaire Date Thrive assessed: 11/17/24 I am a: Patient What is your living situation today?: I have a steady place to live Within the past 12 months, did the food you bought not last and you didn't have the money to get more?: Never true Within the past 12 months, did you worry whether your food would run out before you got money to buy more?: Never true Do you have trouble paying for medicines?: No Do you have trouble getting transportation to medical appointments?: No Do you have trouble paying your heating and electricity bill?: No Do you have trouble taking care of your child, family member or friend?: No Do you have trouble with day-to-day activities such as bathing, preparing meals, shopping, managing finances, etc.?: No Are you currently unemployed and looking for a job?: No Are you interested in more education?: No Please select the resources that you would like help with: None Currently or been in a relationship where the following occur: No concerns reported THRIVE Score: 0 CARLOS-7 AMB Questionnaire CARLOS-7 Date CARLOS - 7 assessed: 11/18/24 Source: Developed by Drs. Venkata Boo, Donna Shaw, Maulik Martinez and colleagues, with an educational tico from [employer]. Physical exam (Primary Care) Vital Signs: Last Vital Signs Pulse 79 02/16/25 13:14 BP 136/72 02/16/25 13:14 Pulse Ox 96 02/16/25 13:14 Oxygen Delivery Method Room Air 02/16/25 13:14 BMI result Body Mass Index 28.3 Tobacco/Smoking Status: Tobacco use Status Tobacco use date assessed 11/18/24 02/16/25 13:16 Patient Tobacco Use Status Former Tobacco user 02/16/25 13:16 Tobacco use type Cigarette 02/16/25 13:16 e-Cigarette/Vaping Use Never Used 02/16/25 13:16 PHQ-9: PHQ-9 Score PHQ-9: Total score 0 02/16/25 13:38 Depression Screening Interpretation: Negative Thrive Assessment: Date of Thrive Assessment Date Thrive assessed 11/17/24 02/16/25 13:16 Currently or been in a relationship where the following occur: No concerns reported Const General: alert; No acute distress Eyes Conjunctivae: conjunctivae normal Resp Auscultation: clear to auscultation bilaterally Cardio Rate: regular rate Rhythm: regular rhythm GI Inspection: Yes normal to inspection Extrem General: Yes normal to inspection and No edema Coding Level of Care Code Est Pt Level 4 (85285) Complex EM visit Add On G2211 Diagnoses Osteoporosis M81.0 Essential hypertension I10 Hypertension type: essential hypertension Hypercholesterolemia E78.00 Fatty liver K76.0 Generalized anxiety disorder F41.1 Assessment & Plan Assessment & Plan (1) Osteoporosis: Comment: August 2024 Code(s): M81.0 - Age-related osteoporosis without current pathological fracture Category: Medical Plan: Density done August 2024 patient has declined to take alendronate.. Discussed about calcium and vitamin-D and exercise (2) Hypertension: Code(s): I10 - Essential (primary) hypertension Category: Medical Qualifiers: Hypertension type: essential hypertension Qualified Code(s): I10 - Essential (primary) hypertension Plan: Continue with blood pressure medication. Decrease salt intake and exercise losartan hydrochlorothiazide 50/12.5 mg once a day (3) Hypercholesterolemia: Code(s): E78.00 - Pure hypercholesterolemia, unspecified Category: Medical Plan: Avoid fried foods, chicken skin, eggs, butter margarine, pastries and meat. Be it pork or beef they have a lot of cholesterol LDL goal of less than 130 and triglyceride of less than 150 (4) Fatty liver: Code(s): K76.0 - Fatty (change of) liver, not elsewhere classified Category: Medical Plan: Low-fat diet and exercise (5) Generalized anxiety disorder: Code(s): F41.1 - Generalized anxiety disorder Category: Medical Plan: Stable Orders: Orders Comprehensive Met. Panel 8 Months E78.00 - Pure hypercholesterolemia, unspecified Free T4 (Free Thyroxine) 8 Months E78.00 - Pure hypercholesterolemia, unspecified Lipid Panel 8 Months E78.00 - Pure hypercholesterolemia, unspecified Vitamin B12 and Folate 8 Months E78.00 - Pure hypercholesterolemia, unspecified Vitamin D 25-OH Total 8 Months E78.00 - Pure hypercholesterolemia, unspecified Complete Blood Count Auto Diff 8 Months E78.00 - Pure hypercholesterolemia, unspecified Thyroid Stimulating Hormone 8 Months E78.00 - Pure hypercholesterolemia, unspecified Medications: Discontinued alendronate (Fosamax) Discontinued Reason: Patient Completed Course 70 mg PO QWEEK 30 days 5 tabs 0RF M81.0 - Age-related osteoporosis without current pathological fracture
[2025-02-16 13:14] VITALS: BP 136/72; PULSE 79; O2SAT 96; BMI 28.3
== END 2025-02-16 13:56 | disposition home or self-care (01) ==
LOC: HO.HMCH 13:04
PROVIDERS: PCP Internal Medicine; Visit Provider Internal Medicine
DX: M81.0 Age-related osteoporosis without current pathological fracture (principal); I10 Essential (primary) hypertension; E78.00 Pure hypercholesterolemia, unspecified; K76.0 Fatty (change of) liver, not elsewhere classified; F41.1 Generalized anxiety disorder

== ENCOUNTER → 2025-02-16 13:03 | Outpatient (BNVA) | payer MEDICARE, SELFPAY | PROVIDERS: PCP Internal Medicine; Visit Provider Internal Medicine | DX: M81.0 Age-related osteoporosis without current pathological fracture (principal); I10 Essential (primary) hypertension; E78.00 Pure hypercholesterolemia, unspecified; K76.0 Fatty (change of) liver, not elsewhere classified; F41.1 Generalized anxiety disorder; Z79.899 Other long term (current) drug therapy | CPT/HCPCS: 96127; 99212 ==

== ENCOUNTER 2025-03-11 09:56 | Outpatient (REF) | payer MEDICARE, SELFPAY ==
--- NOTE | ~2025-03-11 | CT_ITS ---
CLINICAL HISTORY: R91.1 - Solitary pulmonary nodule CT chest without contrast Comparison: CT/DC/SR - CT CHEST WO CON - HIGH RES - 03/06/24 08:45 EDT Findings: No mediastinal mass or lymphadenopathy. Calcified lymph nodes. Thyroid nodules measure up to 6 mm in the left lobe. No cardiomegaly. Trace calcification of the aortic valve and mitral annulus. No calcified coronary artery disease. Normal size thoracic aorta with a mild amount of calcified atherosclerotic disease 1.4 cm ground-glass opacity in the right middle lobe, previously 1.5 cm. Solid pulmonary nodules measure up to 3 mm, stable. Trace biapical scarring. Calcified granuloma. No pneumothorax or pleural effusion. No acute osseous or soft tissue abnormality. No acute pathology in the imaged portion of the upper abdomen. Status post cholecystectomy. Cysts and subcentimeter low attenuating lesions which are too small to characterize in the liver. Moderate-sized hiatal hernia. Impression: 1.4 cm ground-glass opacity in the right middle lobe, previously measuring 1.5 cm. Two year follow up is recommended. Solid pulmonary nodules measure up to 3 mm, stable. This document has been electronically signed by: Niyah Schaefer MD on 03/11/2025 21:17:04
--- OUTSIDE RECORDS SUMMARY | 2025-03-11 11:01 | XMS_ITS | Clinical Summary ---
Author Organization [facility] Address [address] [place] [address] Care Team Providers Care Shot Peen Operator Name Role Phone Agnieszka Mora MD Primary Care Provider [phone] Social History Tobacco Use Types Packs/Day Years [...] patient's age to complete this topic Insurance [facility] MEDICAID ADVANTAGE Care Teams Shot Peen Operator Relationship Specialty Start Date End Date Agnieszka Mora MD [address] [place] [address] [address] [facility] [place] [address] PCP - General Internal Medicine 09/17/24
== END 2025-03-11 09:57 | disposition home or self-care (01) ==
LOC: HO.CT 09:56
PROVIDERS: PCP Internal Medicine; Visit Provider Internal Medicine
DX: R91.1 Solitary pulmonary nodule (principal)
CPT/HCPCS: 71250

== ENCOUNTER → 2025-03-11 09:57 | Outpatient (BNV) | payer MEDICARE, SELFPAY | PROVIDERS: PCP Internal Medicine; Visit Provider Radiology Diagnostic Radiology | DX: R91.8 Other nonspecific abnormal finding of lung field (principal) | CPT/HCPCS: 71250 ==

== ENCOUNTER 2025-08-03 09:54 | Outpatient (AMB) | payer MEDICARE, SELFPAY ==
--- NOTE | 2025-08-03 10:07 | AM.OFFWIN_ITS ---
Intake Vital Signs 08/03/25 10:08 Height 5 ft Weight 149 lb BMI 29.1 BP 162/88 H Blood Pressure Location Lt brachial Position Sitting Pulse 88 Pulse Source Pulse Oximeter Temp 98.4 F Temp Source Oral Pulse Oximetry (%) 97 Oxygen Delivery Method Room Air Comment BP med taken 1 hr prior to visit Intake Visit Reasons: EP-chest & sinus congestion Intake Note: pt presents with chest congestion with productive coughing (yellow to brown phlegm), sinus congestion with yellow mucous Patient Tobacco Use Status: Former Tobacco user Allergies codeine (CODEINE) Allergy (Severe, Verified 08/03/25 10:11) BRONCHOSPASMS oxycodone (OXYCODONE) Allergy (Severe, Verified 08/03/25 10:11) BRONCHOSPASMS ketorolac (From Toradol) Allergy (Verified 08/03/25 10:11) Unknown lisinopril Adverse Reaction (Intermediate, Verified 08/03/25 10:11) Headache Do you need a note to return to daycare/school/sports/work: No HPI HPI Comments History of Present Illness Details 80 y/o Female patient [facility] with c/o upper respiratory symptoms since last week. Reports productive cough, chest congestion, and sinus congestion with yellow nasal discharge. Endorses subjective fevers. She has been using OTC remedies with minimal relief. Denies recent sick contacts, chills, nausea, or vomiting. [facility] Medical History (Updated 08/03/25 @ 11:20 by Sarah Cabral NP) Bronchitis LFT elevation Sinusitis Alopecia Diverticular disease Hypercholesterolemia Hypertension Surgical History History of surgery H/O basal cell carcinoma excision History of foot surgery History of thumb surgery History of appendectomy History of tonsillectomy History of total abdominal hysterectomy and bilateral salpingo-oophorectomy History of cholecystectomy Family History Father Lung cancer Mother Hypertension Stroke Paternal Aunt Breast cancer Brother Prostate cancer Social History (Updated 11/18/24 @ 13:14 by Agnieszka Mora MD) Housing: House Alcohol intake: current Comment: once a week 4 oz wine, 1-2 x a week 1 drink 11/2024 Patient Tobacco Use Status: Former Tobacco user Tobacco use type: Cigarette Years Smoked: quit 1961 2months of smoking only e-Cigarette/Vaping Use: Never Used Second Hand Smoke Exposure: No service: No Current occupational status: retired Cognitive needs: No Hearing needs: No Vision needs: Yes Review of Systems Const All systems reviewed & are unremarkable except as noted in HPI and below Physical Exam Vital Signs: Last Vital Signs Temp 98.4 F 08/03/25 10:08 Pulse 88 08/03/25 10:08 BP 162/88 H 08/03/25 10:08 Pulse Ox 97 08/03/25 10:08 Oxygen Delivery Method Room Air 08/03/25 10:08 BMI result Body Mass Index 29.1 Const General: comfortable Nutritional Appearance: overweight Orientation/consciousness: patient oriented x3 HEENT Head: Yes normocephalic Ears: external ears normal and TM abnormal bulging bilateral and with fluid behind the TM bilateral General nose exam: Nasal discharge present Face and sinus: Yes sinuses nontender Mouth: moist mucous membranes Throat: Yes abnormal tonsil Resp Effort & Inspection: normal respiratory effort and Actively coughing Auscultation: clear to auscultation bilaterally, no crackles, no rales, no rhonchi and no wheezes Cardio Heart sounds: S1 normal heart sound present and S2 normal heart sound present Neuro General: patient oriented x3 Assessment & Plan Assessment & Plan (1) Bronchitis: Code(s): J40 - Bronchitis, not specified as acute or chronic Plan: Acute URI ? likely bacterial sinusitis vs. bronchitis Productive cough and Sinus congestion. Encourage fluids, rest, and humidifier use Continue OTC symptomatic care Ordered Z-Pack antibiotic Nasal saline spray, acetaminophen/ibuprofen PRN RTC if no improvement in 5?7 days or with worsening symptoms (fever >101?F, SOB, chest pain) Medications: New benzonatate 100 mg PO BID 60 caps 0RF J40 - Bronchitis, not specified as acute or chronic azithromycin 500 mg PO DAILY 3 tabs 0RF 3 days J40 - Bronchitis, not specified as acute or chronic Coding Level of Care Code Est Pt Level 4 (37271) Diagnoses Bronchitis J40 Time Spent (min) 20
[2025-08-03 10:08] VITALS: BP 162/88; PULSE 88; TEMP 36.9; O2SAT 97; BMI 29.1
--- OUTSIDE RECORDS SUMMARY | 2025-08-03 11:34 | XMS_ITS | Clinical Summary ---
Author Organization [facility] Address [address] [place] [address] Care Team Providers Care Stock Puller Name Role Phone Agnieszka Mora MD Primary Care Provider [phone] Social History Tobacco Use Types Packs/Day Years [...] Patients (1 - 1-dose 75+ series) 2019 Cholesterol Screening (Lipid Panel) 08/08/2024 Falls Risk Assessment 08/08/2024 Osteoporosis Screening (Bone Density Screening) 08/08/2024 Social Influencers of Health Screening 08/08/2024 Hypertension/CHF/CAD Annual BMP Blood Test 09/18/2024 Depression Screening 10/01/2024 COVID-19 Vaccine ( season) 2025 09/06/2021, 11/29/2020, 11/01/2020 Influenza Vaccine (#1) 2025 , 07/31/2023, 07/12/2022, Additional history exists DTaP,Tdap,and Td Vaccines (2 - Td or Tdap) 11/13/2033 11/13/2023 Pneumococcal Vaccine: 50+ Years Completed 10/15/2018, 06/19/2018, 05/22/2016 HIB Vaccines Aged Out No longer eligi [...] patient's age to complete this topic Insurance [facility] MEDICAID ADVANTAGE [address] [place] [address] Care Teams Stock Puller Relationship Specialty Start Date End Date Agnieszka Mora MD [address] [place] [address] [address] [facility] AILYN [place] [address] PCP - General Internal Medicine 09/17/24
--- OUTSIDE RECORDS SUMMARY | 2025-08-03 11:34 | XMS_ITS | Clinical Summary ---
Author Organization [facility] Address [address] [place] [address] Care Team Providers Care Stock Order Lister Name Role Phone Agnieszka Mora MD Primary Care Provider [phone] Allergies Active Allergy Reactions Criticality Noted Date [...] Health Maintenance Due Date Last Done Comments Advance Care Planning 1944 DTaP/Tdap/Td Vaccines (1 - Tdap) 1963 Pneumococcal Vaccines 50+ (1 of 1 - PCV) 1994 Zoster (Shingles) Vaccine (1 of 2) 1994 DXA Bone Density (Females,Ag es 65 and older) 2009 RSV Vaccine 50 years and old er and Patients (1 - 1-dose 75+ series) 2019 Influenza Vaccine 05/01/2025 COVID-19 Vaccine ( - 2023-2 5 season) 2025 Hepatitis B Vaccines Aged Out No long er eligible based on patient's age to complete this topic Insurance [employer] MEDICARE Care Teams Stock Order Lister Relationship Specialty Start Date End Date Agnieszka Mora MD [address] [place] [address] [place] [address] PCP - General Internal Medicine 05/29/23
--- OUTSIDE RECORDS SUMMARY | 2025-08-03 11:34 | XMS_ITS ---
Author Name [facility] Organization Unknown History of Medication Use Medication Directions Dispensed Refills Start Date End Date Stat us acetaminophen (TYLENOL) 500 MG tablet Take 2 tablets (1,000 mg total) by mouth 3 (three) times a day with meals. 06/21/2023 active aspirin (GOMEZ ASPIRIN) 325 MG tablet Take 1 tablet (325 mg total) by mouth 2 (two) times a day with breakfast and dinner. TAKE AFTER SURGERY TO PREVENT BLOOD CLOTS 06/21/2023 active calcium carbonate (Calcium 600) 600 MG tablet Take 1 tablet (600 mg total) by mouth 2 (two) times a day with meals. 06/21/2023 active gabapentin (NEURONTIN) 100 MG capsule Start taking 1 pill at night after surgery, may increase dose to 3 capsules at night as needed for post operative pain, swelling, numbness and tingling. 06/21/2023 active Vitamin D3 (CHOLECALCIFEROL) 50 MCG (2000 UT) tablet Take 2 tablets (4,000 Units total) by mouth daily. 06/21/2023 active Allergies Allergen Reaction Severity Comment Documented Date Source Statu s KETOROLAC TROMETHAMINE OTHER (SEE COMMENTS) Bronchospasm 07/03/2023 [facility] active OXYCODONE OTHER (SEE COMMENTS) 05/29/2023 [facility] active CODEINE OTHER (SEE COMMENTS) [facility] Problems Problem Status Onset Date Problem Type Date of Resoluti on Source Hammer toe of left foot active EncounterDiagnosisAct [facility] Encounters Encounter Type Encounter Reason Primary Diagnosis Location Date Ambulatory [facility] 10/02/2023 Ambulatory Other hammer toe(s) (acquired), left foot Other hammer toe(s) (acquired), left foot [facility] 10/02/2023 Ambulatory Other hammer toe(s) (acquired), left foot Other hammer toe(s) (acquired), left foot [facility] 08/07/2023 Ambulatory Other hammer toe(s) (acquired), left foot Other hammer toe(s) (acquired), left foot [facility] 08/07/2023 Ambulatory Other hammer toe(s) (acquired), left foot Other hammer toe(s) (acquired), left foot [facility] 07/17/2023 Ambulatory Other hammer toe(s) (acquired), left foot Other hammer toe(s) (acquired), left foot [facility] 07/17/2023 Ambulatory Pain in left toe(s) Pain in left toe(s) [facility] 07/03/2023 Ambulatory Pain in left toe(s) Pain in left toe(s) [facility] 07/03/2023 Ambulatory Pain in left toe(s) Pain in left toe(s) [facility] 05/29/2023 Ambulatory Pain in left toe(s) Pain in left toe(s) [facility] 05/29/2023 Care Team Organization Name Specialty Phone Email Start Date End [facility] DELICIA NGUYEN Primary [facility] 05/29/2023 12/17/2024 [facility] Primary Care 05/29/2023 08/07/2023 [facility] 05/29/2023 05/29/2023
--- OUTSIDE RECORDS SUMMARY | 2025-08-03 11:34 | XMS_ITS | Encounter Summary ---
Author Organization [facility] Address [address] [place] [address] Care Team Providers Care Back Sewer Name Role Phone Agnieszka Mora MD Primary Care Provider [phone] Encounter Details Date Type Department Care Team ([facility] st Contact Info) Description 06/25/2023 Scanned Document [facility] [place] [address] Adrian Moura MD [address] [place] [address] Social History Tobacco Use Types Packs/Day Years [...] on filedocumented in this encounter Care Teams Back Sewer Relationship Specialty Start Date End Date Agnieszka Mora MD [address] [place] [address] [place] [address] PCP - General Internal Medicine 05/29/23 documented as of this encounter
--- OUTSIDE RECORDS SUMMARY | 2025-08-03 11:34 | XMS_ITS | Encounter Summary ---
Author Organization [facility] Address [address] [place] [address] Care Team Providers Care Shield Runner Name Role Phone Agnieszka Mora MD Primary Care Provider [phone] Encounter Details Date Type Department Care Team (Late st Contact Info) Description 06/01/2023 Scanned Document [facility] [address] [place] [phone] Adrian Moura MD [address] [place] [address] Social History Tobacco Use Types Packs/Day Years [...] on filedocumented in this encounter Care Teams Shield Runner Relationship Specialty Start Date End Date Agnieszka Mora MD [address] [place] [address] [place] [address] PCP - General Internal Medicine 05/29/23 documented as of this encounter
== END 2025-08-03 11:33 | disposition home or self-care (01) ==
PROVIDERS: PCP Internal Medicine; Visit Provider Nurse Practitioner Family
DX: J40 Bronchitis, not specified as acute or chronic (principal)

== ENCOUNTER → 2025-08-03 09:54 | Outpatient (BNVA) | payer MEDICARE, SELFPAY | PROVIDERS: PCP Internal Medicine; Visit Provider Nurse Practitioner Family | DX: J40 Bronchitis, not specified as acute or chronic (principal) | CPT/HCPCS: 99212 ==

== ENCOUNTER 2025-08-13 13:40 | Outpatient (AMB) | payer MEDICARE, SELFPAY ==
--- NOTE | 2025-08-13 14:04 | A.OFFPC_ITS ---
Vital Signs 08/13/25 14:05 Height 5 ft Weight 148 lb 2 oz BMI 28.9 BP 158/80 H Blood Pressure Location Lt brachial Position Sitting Respiration 18 Pulse 84 Pulse Source Pulse Oximeter Temp 97.3 F Temp Source Temporal Artery Scan Pulse Oximetry (%) 98 Oxygen Delivery Method Room Air Intake Visit Reasons: lingering Sinus congestion and cough Follow Up Specialist Required: No Accompanied by: Self / Same As Patient Allergies codeine (CODEINE) Allergy (Severe, Verified 08/13/25 14:07) BRONCHOSPASMS oxycodone (OXYCODONE) Allergy (Severe, Verified 08/13/25 14:07) BRONCHOSPASMS ketorolac (From Toradol) Allergy (Verified 08/13/25 14:07) Unknown lisinopril Adverse Reaction (Intermediate, Verified 08/13/25 14:07) Headache Medication List - Last Reconciled 08/13/25 by Natalie Calixto MD ascorbic acid (vitamin C) 1 g PO DAILY aspirin (Adult Aspirin Regimen) 81 mg PO DAILY azithromycin 500 mg PO DAILY 3 days benzonatate 100 mg PO BID calcium carbonate-vitamin D3 600 mg-10 mcg (400 unit) (Calcium with Vitamin D) 1 tab PO DAILY cetirizine 10 mg PO DAILY PRN 30 days docusate sodium (Colace) 100 mg PO BID lactobacillus combination no.8 (Adult Probiotic) 3,000 mmu cells PO DAILY losartan-hydrochlorothiazide 50-12.5 mg 1 tab PO DAILY meloxicam 15 mg PO DAILY PRN multivitamin 1 tab PO DAILY omega-3 fatty acids 500 mg PO DAILY psyllium husk (Metamucil) 1 tbsp PO BID simvastatin 10 mg PO BEDTIME Tobacco use date assessed: 08/13/25 Fall risk assessment: No Falls in past year Last assessed Fall Risk: 08/13/25 Dental Screening Dental Screen Date: 08/13/25 Did you have a dental visit in the last 12 months?: Yes Did you have a dental problem in the last 6 months where you did not have access to dental care?: No Was dental information given to patient?: Patient has dentist HPI HPI Comments History of Present Illness Details The patient is an 80-year-old female presenting for evaluation of persistent upper respiratory symptoms. She reports first becoming symptomatic on July 27 and subsequently sought treatment at an urgent care on August 03, where she was diagnosed with sinusitis and possible bronchitis. Her symptoms include a persistent post-nasal drip, an associated productive cough, lightheadedness, and occasional headaches. She was treated with azithromycin 500 mg for three days, which did not resolve her symptoms, although she notes they are not as severe as they were initially. Current self-management includes Flonase in the morning, saline spray during the day, and frequent use of cough drops. The patient's current medications include vitamin C, aspirin, Zyrtec for allergies, a probiotic, losartan, hydrochlorothiazide, occasional meloxicam, a multivitamin, omega-3, simvastatin, and Metamucil. She has a prescription for benzonatate for cough, but has not filled it as she had some at home. She reports her gastrointestinal system is doing well. She has a known allergy to oxycodone and is not allergic to penicillin. [facility] Medical History Bronchitis LFT elevation Sinusitis Alopecia Diverticular disease Hypercholesterolemia Hypertension Surgical History History of surgery H/O basal cell carcinoma excision History of foot surgery History of thumb surgery History of appendectomy History of tonsillectomy History of total abdominal hysterectomy and bilateral salpingo-oophorectomy History of cholecystectomy Family History Father Lung cancer Mother Hypertension Stroke Paternal Aunt Breast cancer Brother Prostate cancer Social History Housing: House Alcohol intake: current Comment: once a week 4 oz wine, 1-2 x a week 1 drink 11/2024 Patient Tobacco Use Status: Former Tobacco user Tobacco use type: Cigarette Years Smoked: quit 1961 2months of smoking only e-Cigarette/Vaping Use: Never Used Second Hand Smoke Exposure: No service: No Current occupational status: retired Cognitive needs: No Hearing needs: No Vision needs: Yes Questionnaire Thrive Questionnaire Date Thrive assessed: 11/17/24 I am a: Patient What is your living situation today?: I have a steady place to live Within the past 12 months, did the food you bought not last and you didn't have the money to get more?: Never true Within the past 12 months, did you worry whether your food would run out before you got money to buy more?: Never true Do you have trouble paying for medicines?: No Do you have trouble getting transportation to medical appointments?: No Do you have trouble paying your heating and electricity bill?: No Do you have trouble taking care of your child, family member or friend?: No Do you have trouble with day-to-day activities such as bathing, preparing meals, shopping, managing finances, etc.?: No Are you currently unemployed and looking for a job?: No Are you interested in more education?: No Please select the resources that you would like help with: None Currently or been in a relationship where the following occur: No concerns reported THRIVE Score: 0 CARLOS-7 AMB Questionnaire CARLOS-7 Date CARLOS - 7 assessed: 11/18/24 Source: Developed by Drs. Venkata Boo, Donna Shaw, Maulik Martinez and colleagues, with an educational tico from [employer]. Review of Systems Const Details: As per HPI. Physical exam (Primary Care) Vital Signs: Last Vital Signs Temp 97.3 F 08/13/25 14:05 Pulse 84 08/13/25 14:05 Resp 18 08/13/25 14:05 BP 158/80 H 08/13/25 14:05 Pulse Ox 98 08/13/25 14:05 Oxygen Delivery Method Room Air 08/13/25 14:05 BMI result Body Mass Index 28.9 Tobacco/Smoking Status: Tobacco use Status Tobacco use date assessed 08/13/25 08/13/25 14:12 Patient Tobacco Use Status Former Tobacco user 08/13/25 14:12 Tobacco use type Cigarette 08/13/25 14:12 e-Cigarette/Vaping Use Never Used 08/13/25 14:12 Thrive Assessment: Date of Thrive Assessment Date Thrive assessed 11/17/24 08/13/25 14:12 Currently or been in a relationship where the following occur: No concerns reported Const Other: Pertinent findings are in BOLD GENERAL APPEARANCE NAD, activity normal for age, well developed/ well nourished, no cyanosis, pallor, or diaphoresis. EYES lids/conjunctiva normal. EARS/NOSE/THROAT Mucous membranes moist, nares normal, lips/teeth normal uvula midline without oral pharyngeal erythema, exudate or swelling TMs normal bilaterally. No lymphangitis/lymphedema. HEAD/NECK normocephalic atraumatic, no facial trauma, neck is supple. RESPIRATORY respiratory effort normal, speaks in full sentences, no tripod position, no accessory muscle use. Lungs clear to auscultation without rhonchi, wheezes, rales CARDIAC Regular rate and rhythm, no edema. ABDOMINAL Soft, ND/NT. No evidence of fluid wave. No pulsatile masses on exam, rebound tenderness, Jackson sign or pain over Mcburney's point. MUSCLES/EXTREMITIES No abnormal range of motion, no swelling. SKIN Warm, pink and dry. No rashes, dermatoses, petechiae or lesions. NEUROLOGICAL Speech is clear and appropriate. Normal level of consciousness. Gait and coordination are normal. 5/5 strength in all extremities. PSYCH Normal mood and affect. Judgement/competence is appropriate Coding Level of Care Code Est Pt Level 3 (28470) Diagnoses Bacterial sinusitis J32.9; B96.89 Assessment & Plan Assessment & Plan (1) Bacterial sinusitis: Code(s): J32.9 - Chronic sinusitis, unspecified; B96.89 - Other specified bacterial agents as the cause of diseases classified elsewhere Category: Medical Plan: - The patient's symptoms of sinusitis have persisted despite a prior course of azithromycin. - A new antibiotic, amoxicillin 500 mg, will be prescribed to be taken twice a day for five days. - The patient is advised to continue using Flonase and saline nasal sprays. - It is recommended that she take benzonatate to help alleviate the cough, which is attributed to post-nasal drip. - Advised to take one pill of meloxicam daily to help ease symptoms due to its anti-inflammatory properties. - The patient should follow up as needed if symptoms do not improve after approximately 10 days. Plan We discussed that although her previous course of azithromycin did not resolve her sinus symptoms, we would try a different antibiotic, amoxicillin, for five days. I advised her to continue using Flonase and also to take her benzonatate to help with the cough, which is likely from sinus drainage. I also recommended taking meloxicam daily for its anti-inflammatory effects to help ease her symptoms. I informed her that a scheduled follow-up is not necessary, but she should return for re-evaluation in about 10 days if she is not feeling better. Medications: New amoxicillin 500 mg PO BID 10 caps 0RF
[2025-08-13 14:05] VITALS: BP 158/80; PULSE 84; RESP 18; TEMP 36.3; O2SAT 98; BMI 28.9
--- OUTSIDE RECORDS SUMMARY | 2025-08-13 17:02 | XMS_ITS | Clinical Summary ---
Author Organization [facility] Address [address] [place] [address] Care Team Providers Care Printed Circuit Boards Inspector Name Role Phone Agnieszka Mora MD Primary Care Provider [phone] Social History Tobacco Use Types Packs/Day Years [...] patient's age to complete this topic Insurance [facility] MEDICAID ADVANTAGE [address] [place] [address] Care Teams Printed Circuit Boards Inspector Relationship Specialty Start Date End Date Agnieszka Mora MD [address] [place] [address] [address] [facility] A[place] [address] PCP - General Internal Medicine 09/17/24
--- OUTSIDE RECORDS SUMMARY | 2025-08-13 17:02 | XMS_ITS | Encounter Summary ---
Author Organization [facility] Address [address] [place] [address] Care Team Providers Care Federal Air Marshal Name Role Phone Agnieszka Mora MD Primary Care Provider [phone] Encounter Details Date Type Department Care Team (Late st Contact Info) Description 06/01/2023 Scanned Document [facility] [address] [place] [phone] Adrian Moura MD [address] [place] [address] Social History Tobacco Use Types Packs/Day Years [...] on filedocumented in this encounter Care Teams Federal Air Marshal Relationship Specialty Start Date End Date Agnieszka Mora MD [address] [place] [address] [place] [address] PCP - General Internal Medicine 05/29/23 documented as of this encounter
--- OUTSIDE RECORDS SUMMARY | 2025-08-13 17:02 | XMS_ITS | Clinical Summary ---
Author Organization [facility] Address [address] [place] [address] Care Team Providers Care Dining Server Name Role Phone Agnieszka Mora MD Primary Care Provider [phone] Allergies Active Allergy Reactions Criticality Noted Date [...] [employer] Care Teams Dining Server Relationship Specialty Start Date End Date Agnieszka Mora MD [address] [place] [address] [place] [address] PCP - General Internal Medicine 05/29/23
--- OUTSIDE RECORDS SUMMARY | 2025-08-13 17:02 | XMS_ITS | Encounter Summary ---
Author Organization [facility] Address [address] [place] [address] Care Team Providers Care Nutrition Faculty Member Name Role Phone Agnieszka Mora MD Primary Care Provider [phone] Encounter Details Date Type Department Care Team ([facility] st Contact Info) Description 06/25/2023 Scanned Document [facility] [place] [address] Adrian Moura MD [address] [place] [address] Social History Tobacco Use Types Packs/Day Years [...] on filedocumented in this encounter Care Teams Nutrition Faculty Member Relationship Specialty Start Date End Date Agnieszka Mora MD [address] [place] [address] [place] [address] PCP - General Internal Medicine 05/29/23 documented as of this encounter
== END 2025-08-13 14:23 | disposition home or self-care (01) ==
LOC: HO.HMCH 13:41
PROVIDERS: PCP Internal Medicine; Visit Provider Internal Medicine
DX: J32.9 Chronic sinusitis, unspecified (principal); B96.89 Other specified bacterial agents as the cause of diseases classified elsewhere

== ENCOUNTER → 2025-08-13 13:40 | Outpatient (BNVA) | payer MEDICARE, SELFPAY | PROVIDERS: PCP Internal Medicine; Visit Provider Internal Medicine | DX: I10 Essential (primary) hypertension (principal); J32.9 Chronic sinusitis, unspecified; B96.89 Other specified bacterial agents as the cause of diseases classified elsewhere | CPT/HCPCS: 99212 ==

== ENCOUNTER 2025-09-05 07:36 | Outpatient (REF) | payer MEDICARE, SELFPAY ==
--- NOTE | ~2025-09-05 | XR_ITS ---
EXAMINATION: XR FOOT 3 OR MORE VIEWS RIGHT HISTORY: M79.671 - Pain in right foot COMPARISON: There are no prior studies available for comparison. FINDINGS: Three views of the right foot are submitted. The bones are osteopenic. There is no fracture or dislocation. The patient is status post talocalcaneal and talonavicular fusion with plates and screws. 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 There is also moderate osteoarthritis of the 1st MTP joint and mild degenerative change of the DIP and PIP joints. There is a small plantar calcaneal spur. The soft tissues are unremarkable. XR/XR foot RT min 3V IMPRESSION: Osteopenia. Status post talocalcaneal and talonavicular fusion. Degenerative changes as described. Electronically signed by: Venkata Haas MD 09/07/2025 07:52 AM TORY
--- OUTSIDE RECORDS SUMMARY | 2025-09-05 07:40 | XMS_ITS | Encounter Summary ---
Author Organization [facility] Address [address] [place] [address] Care Team Providers Care Monorail Crane Operator Name Role Phone Agnieszka Mora MD Primary Care Provider [phone] Encounter Details Date Type Department Care Team ([facility] st Contact Info) Description 06/25/2023 Scanned Document [facility] [place] [address] Adrian Moura MD [address] [place] [address] Social History Tobacco Use Types Packs/Day Years [...] on filedocumented in this encounter Care Teams Monorail Crane Operator Relationship Specialty Start Date End Date Agnieszka Mora MD [address] [place] [address] [place] [address] PCP - General Internal Medicine 05/29/23 documented as of this encounter
--- OUTSIDE RECORDS SUMMARY | 2025-09-05 07:40 | XMS_ITS | Clinical Summary ---
Author Organization [facility] Address [address] [place] [address] Care Team Providers Care Numerical Control Tool Programmer Name Role Phone Agnieszka Mora MD Primary Care Provider [phone] Social History Tobacco Use Types Packs/Day Years [...] patient's age to complete this topic Insurance [facility] MEDICAID ADVANTAGE [address] [place] [address] Care Teams Numerical Control Tool Programmer Relationship Specialty Start Date End Date Agnieszka Mora MD [address] [place] [address] [address] [facility] [place] [address] PCP - General Internal Medicine 09/17/24
--- OUTSIDE RECORDS SUMMARY | 2025-09-05 07:40 | XMS_ITS | Encounter Summary ---
Author Organization [facility] Address [address] [place] [address] Care Team Providers Care Mold Maker Name Role Phone Agnieszka Mora MD Primary Care Provider [phone] Encounter Details Date Type Department Care Team (Late st Contact Info) Description 06/01/2023 Scanned Document [facility] [address] [place] [address] [phone] Adrian Moura MD [address] [place] [address] Social History Tobacco Use Types Packs/Day Years [...] on filedocumented in this encounter Care Teams Mold Maker Relationship Specialty Start Date End Date Agnieszka Mora MD [address] [place] [address] [place] [address] PCP - General Internal Medicine 05/29/23 documented as of this encounter
--- OUTSIDE RECORDS SUMMARY | 2025-09-05 07:40 | XMS_ITS | Clinical Summary ---
Author Organization [facility] Address [address] [place] [address] Care Team Providers Care Vp Strategic Planning Name Role Phone Agnieszka Mora MD Primary Care Provider [phone] Allergies Active Allergy Reactions Criticality Noted Date [...] series) 2019 Influenza Vaccine 05/01/2025 COVID-19 Vaccine (1 - 2024-2 6 season) 2025 Hepatitis B Vaccines Aged Out No long er eligible based on patient's age to complete this topic Insurance [employer] MED[employer]ARE Care Teams Vp Strategic Planning Relationship Specialty Start Date End Date Agnieszka Mora MD [address] [place] [address] [place] [address] PCP - General Internal Medicine 05/29/23
== END 2025-09-05 07:37 | disposition home or self-care (01) ==
LOC: HO.XRAY 07:36
PROVIDERS: PCP Internal Medicine
DX: M79.671 Pain in right foot (principal)
CPT/HCPCS: 73630

== ENCOUNTER → 2025-09-05 07:41 | Outpatient (BNV) | payer MEDICARE, SELFPAY | PROVIDERS: PCP Internal Medicine; Visit Provider Radiology Diagnostic Radiology | DX: M85.871 Other specified disorders of bone density and structure, right ankle and foot (principal); M19.071 Primary osteoarthritis, right ankle and foot | CPT/HCPCS: 73630 ==